=== PATIENT | female | born 1990 | race Caucasian/White ===

== ENCOUNTER 2017-03-02 16:20 | Inpatient (IN) | payer BC ==
[~2017-03-02] VITALS: Ht 157.5 cm; Wt 106.5 kg
[~2017-03-02 16:20] MED LIST: ADVIN10/60 INH; ALL180 PO; ASCA500 PO; GFNSR600 PO; GLC500 PO; LRT5 PO; MULT-506 PO; SNG10 PO; SPRINTEC PO
[2017-03-02] MEDS ORDERED: SODIUM CHLORIDE 0.9% 1000ML 1,000 ML IV STA ×3 (16:39→16:59)
--- NOTE | 2017-03-02 16:45 | EMERGENCY ROOM VISIT NOTE ---
History Report prepared by Lucy: Anatoliy Marroquin Under the Supervision of: Dr. Rock Tomas M.D. First contact with patient: 16:32 Chief Complaint: ILLNESS Stated Complaint: COUGH,CONGESTION,FEVER,SORE THROAT History of Present Illness The patient is a 27 year old female who presents to the Emergency Room with complaints of a fever that began three days ago. The patient's fever has been between 102 F and 103 F. At this time, the patient began to have a fever. The next day she took Advil and Tylenol alternating between the two. She then began to experience a productive cough, congestion, a sore throat, and neck pain. She denies any abdominal pain or falls. She did receive a flu shot this year. She went to a walk in clinic twice over the past three days due to the persistently high fever. She has had multiple sick contacts. Source of History: patient Onset: three days ago Position: other (global) Symptom Intensity: 102 to 103 F Quality: other (fever) Timing: other (Persistent) Associated Symptoms: + cough, + headache, + neck pain, + sorethroat, No abdominal pain Review of Systems See HPI for pertinent positives & negatives. A total of 10 systems reviewed and were otherwise negative. Past Medical & Surgical Medical Problems: (1) Asthma (2) Diabetes Family History Diabetes mellitus Social History Smoking Status: Never Smoker Smokeless Tobacco Use: No Drug Use: none Housing Status: lives with family Current/Historical Medications Scheduled Ascorbic Acid (Vitamin C), 500 MG PO QAM Azelastine Hcl-Fluticasone Pro (Dymista), 1 SPRY BRENT QAM Cholestyramine (Bulk) (Cholestyramine), 2 PKT PO DAILY Cinnamon (Cinnamon), 500 MG PO QAM Cranberry (Vaccinium Macrocarp (Cranberry), 4,200 MG PO QAM Ethinyl Estrad/Norgestimate (Sprintec 28), 1 TAB PO DAILY Guaifenesin Ext Rel (Mucinex Ext Rel), 600 MG PO QAM Lactobacillus (Acidophilus), 1 CAP PO DAILY Loratadine (Allergy), 10 MG PO QAM Losartan Potassium (Cozaar), 50 MG PO QPM Metformin Hcl Er (Glucophage Er), 1,500 MG PO TIDM Mometasone Furoate (Inhalation (Asmanex Twisthaler 7 Mete), 1 PUFF INH QAM Montelukast Sodium (Montelukast Sodium), 10 MG PO QPM Multiple Vitamins W/ Minerals (Centrum), 1 TAB PO QAM Saline ([place] Nasal [place]), 1 SPRAY NA AMPM Scheduled PRN Albuterol Hfa (Ventolin Hfa), 2 PUFFS INH PRN PRN for SOB/Wheezing Allergies Coded Allergies: Cephalosporins (Unverified Allergy, Unknown, HIVES, 04/01/16) Cefuroxime (Unverified Adverse Reaction, Unknown, UNKNOWN, 03/02/17) Sulfa Antibiotics (Unverified Adverse Reaction, Unknown, UNKNOWN, 03/02/17) Uncoded Allergies: BETALACTAMASEIN (Allergy, Unknown, 04/01/16) LORBID (Allergy, Unknown, 01/06/03) MISC B-LACTAM (Allergy, Unknown, 04/01/16) Physical Exam Vital Signs Date Time Temp Pulse Resp B/P Pulse Ox O2 Delivery O2 Flow Rate FiO2 03/02/17 16:40 110 03/02/17 16:36 116 158/95 97 03/02/17 16:25 36.7 117 16 167/97 97 Room Air Physical Exam GENERAL: Patient is well appearing and in minimal acute distress. HEENT: No acute trauma, normocephalic atraumatic, mucous membranes dry, no nasal congestion, no scleral icterus. Erythematous posterior oropharynx. NECK: No stridor, no adenopathy, no meningismus, trachea is midline. LUNGS: No dyspnea. Clear to auscultation and equal bilaterally. No wheeze, no rhonchi. HEART: Tachycardic rate and regular rhythm. No murmurs, rubs, gallops appreciated. ABDOMEN: Soft, nontender, bowel sounds positive, no masses appreciated, no peritonitis. BACK: No midline tenderness, no CVA tenderness EXTREMITIES: Normal motion all extremities, no cyanosis, no edema. NEUROLOGIC: Alert and oriented, no acute motor or sensory deficits, no focal weakness, cranial nerves grossly intact. SKIN: No rash, no jaundice, no diaphoresis. Medical Decision & Procedures ER Provider Diagnostic Interpretation: X ray results are stated below per my interpretation and the radiologist's interpretation. CHEST ONE VIEW PORTABLE HISTORY: cough, fever, fatigue COMPARISON: None. FINDINGS: The right lung is clear. Patchy airspace opacity within the left mid to lower lung zone. No pleural effusions. No pneumothorax. The heart is normal in size. IMPRESSION: Patchy airspace opacity within the left mid to lower lung zone consistent with a pneumonia. Electronically signed by: Joe Gan M.D. 03/02/2017 5:14 PM Dictated Date/Time: 03/02/2017 5:14 PM Laboratory Results 03/02/17 16:50 Red Blood Count 4.50, Mean Corpuscular Volume 87.8, Mean Corpuscular Hemoglobin 30.4, Mean Corpuscular Hemoglobin Concent 34.7, Mean Platelet Volume 10.5, Neutrophils (%) (Auto) 67.3, Lymphocytes (%) (Auto) 21.7, Monocytes (%) (Auto) 10.5, Eosinophils (%) (Auto) 0.4, Basophils (%) (Auto) 0.1, Neutrophils # (Auto ) 4.89, Lymphocytes # (Auto) 1.58, Monocytes # (Auto) 0.76, Eosinophils # (Auto ) 0.03, Basophils # (Auto) 0.01 03/02/17 16:50 Test 03/02/17 16:45 03/02/17 16:50 03/02/17 16:56 Influenza Type A Antigen POS for Influ A (NEG) Influenza Type B Antigen Neg for Influ B (NEG) White Blood Count 7.27 K/uL (4.8-10.8) Red Blood Count 4.50 M/uL (4.2-5.4) Hemoglobin 13.7 g/dL (12.0-16.0) Hematocrit 39.5 % (37-47) Mean Corpuscular Volume 87.8 fL (80-100) Mean Corpuscular Hemoglobin 30.4 pg (25-34) Mean Corpuscular Hemoglobin Concent 34.7 g/dl (32-36) Platelet Count 245 K/uL (130-400) Mean Platelet Volume 10.5 fL (7.4-10.4) Neutrophils (%) (Auto) 67.3 % Lymphocytes (%) (Auto) 21.7 % Monocytes (%) (Auto) 10.5 % Eosinophils (%) (Auto) 0.4 % Basophils (%) (Auto) 0.1 % Neutrophils # (Auto) 4.89 K/uL (1.4-6.5) Lymphocytes # (Auto) 1.58 K/uL (1.2-3.4) Monocytes # (Auto) 0.76 K/uL (0.11-0.59) Eosinophils # (Auto) 0.03 K/uL (0-0.5) Basophils # (Auto) 0.01 K/uL (0-0.2) RDW Standard Deviation 45.7 fL (36.4-46.3) RDW Coefficient of Variation 14.1 % (11.5-14.5) Immature Granulocyte % (Auto) 0.0 % Immature Granulocyte # (Auto) 0.00 K/uL (0.00-0.02) Prothrombin Time 10.4 SECONDS (9.0-12.0) Prothromb Time International Ratio 1.0 (0.9-1.1) Activated Partial Thromboplast Time 30.2 SECONDS (21.0-31.0) Partial Thromboplastin Ratio 1.2 Anion Gap 12.0 mmol/L (3-11) Est Creatinine Clear Calc Drug Dose 149.5 ml/min Estimated GFR () 142.3 Estimated GFR (Non- 122.8 BUN/Creatinine Ratio 7.8 (10-20) Calcium Level 8.8 mg/dl (8.5-10.1) Troponin I < 0.015 ng/ml (0-0.045) C-Reactive Protein 31.50 mg/dl (0-0.29) Chemistry Specimen Hemolysis Bedside Lactic Acid Venous 3.46 mmol/L (0.90-1.70) Laboratory results as reviewed by me. Medications Administered Medications (Trade) Dose Ordered Sig/Berto Route Start Time Stop Time Status Last Admin Dose Admin Sodium Chloride 1,000 ml @ 999 mls/hr Q1H1M STAT IV 03/02/17 16:39 03/02/17 17:39 DC 03/02/17 16:56 999 MLS/HR Sodium Chloride 1,000 ml @ 999 mls/hr Q1H1M STAT IV 03/02/17 16:58 03/02/17 17:58 DC 03/02/17 17:05 999 MLS/HR Sodium Chloride (Nss 1000ml) 1,000 ml @ 999 mls/hr Q1H1M STAT IV 03/02/17 16:59 4/9/17 17:59 DC 03/02/17 18:38 999 MLS/HR Levofloxacin (Levaquin / D5W) 750 mg NOW STAT IV 03/02/17 17:20 03/02/17 17:22 DC 03/02/17 17:42 750 MG Oseltamivir Phosphate (Tamiflu Cap) 75 mg NOW STAT PO 03/02/17 17:27 03/02/17 17:29 DC 03/02/17 17:41 75 MG ECG Indication: other (Illness) Rate (beats per minute): 107 Rhythm: sinus tachycardia Findings: no acute ischemic change, no ectopy ED Course 1632: The patient was evaluated in room A2. A complete history and physical exam was performed. 1639: Ordered Sodium Chloride 1000 ml @ 999 mls/hr IV, Sodium Chloride 1000 ml @ 999 mls/hr IV 1659: Ordered Sodium Chloride 1000 ml @ 999 mls/hr IV 1705: After reevaluation, the patient is in no distress. 1720: Ordered Levofloxacin 750 mg IV 1726: The patient and mother are in agreement with the patient staying for further inpatient care. 1727: Ordered Tamiflu Cap 75 mg PO 1730: Upon reevaluation, the patient is resting. Discussed results and treatment plan with the patient. She verbalized understanding and agreement with the treatment plan. The patient will be evaluated Dr. Jorge Mayorga, for further management. Medical Decision Differential: Viral, Pharyngitis, Cellulitis, Pneumonia, Influenza, Meningitis, Sepsis, Bacteremia, UTI/Pyelonephritis, Endocrine, Toxicologic, amongst other pathologies entertained. 27 yr old arrives with complaints of fevers, fatigue, along with multiple flu- like symptoms. She does not have meningitis by examination. Initial lung exam not very impressive though she is clearly quite dehydrated. With fevers/tachy went ahead with lactic acid which was significantly elevated consistent with sepsis. Full 30ml/kg fluid bolus along with 2 IV's ordered. She was given empiric Levaquin for pneumonia with LLL infiltrate noted on CXR. EKG is tach and trop negative. No evidence of layla/myocarditis. Multiple re-checks and patient looking improved though cough mildly more pronounced. She had flu positive and with sepsis felt that Tamiflu treatment in order. Consults Time Called: 1726 Consulting Physician: Dr. [place] [facility] Returned Call: 1730 They will be evaluating the patient for further management. Impression Primary Impression: Severe sepsis Additional Impressions: Dehydration LLL pneumonia Lactic acidosis Influenza A Critical Care I have personally spent greater than 35 minutes of critical care time in the direct management of this patient. This was a life/limb threatening event. This includes time spent evaluating patient, direct bedside care, chart review, placing orders, interpretation of diagnostic studies, discussion with consultants, patient, and family members, as well as other required patient management activities. These 35 minutes are in excess of all separately billable procedures. Scribe Attestation The scribe's documentation has been prepared under my direction and personally reviewed by me in its entirety. I confirm that the note above accurately reflects all work, treatment, procedures, and medical decision making performed by me. Departure Information Dispostion Being Evaluated By Hospitalist Referrals Coy Pham M.D. (PCP) Patient Instructions My [facility] Problem Qualifiers Additional Impressions: LLL pneumonia Pneumonia type: due to unspecified organism Qualified Codes: J18.1 - Lobar pneumonia, unspecified organism
[2017-03-02] MEDS ORDERED: MONT1TAB5 PO (16:51)
[2017-03-02] MEDS ORDERED: CINN500T PO (16:51)
[2017-03-02] MEDS ORDERED: LOSA50TA6 PO (16:51)
[2017-03-02] MEDS ORDERED: ASCO1CAP3 PO (16:51)
[2017-03-02] MEDS ORDERED: SPR28 PO (16:51)
[2017-03-02] MEDS ORDERED: LACTCAP3 PO (16:51)
[2017-03-02] MEDS ORDERED: CRAN1TAB6 PO (16:51)
[2017-03-02] MEDS ORDERED: VNTHFA/IN INH (16:51)
[2017-03-02] MEDS ORDERED: LORA10TA44 PO (16:51)
[2017-03-02] MEDS ORDERED: GUAI1TAB55 PO (16:51)
[2017-03-02] MEDS ORDERED: CHOLPOW PO (16:51)
[2017-03-02] MEDS ORDERED: MOME110A2 INH (16:51)
[2017-03-02] MEDS ORDERED: SALI0.6510 (16:51)
[2017-03-02] MEDS ORDERED: MULTTAB5 PO (16:51)
[2017-03-02] MEDS ORDERED: METF500T5 PO (16:51)
[2017-03-02] MEDS ORDERED: AZEL30SP NAE (16:51)
[2017-03-02 17:09] LABS: BASO % 0.1 %; BASO ABS # 0.01 K/uL (0-0.2); COMPLETE YES; EOS % 0.4 %; HEMATOCRIT 39.5 % (37-47); LYMPH % 21.7 %; LYMPH ABS # 1.58 K/uL (1.2-3.4); MEAN CELL VOLUME 87.8 fL (80-100); MEAN CORPUSCULAR HEMOGLOBIN 30.4 pg (25-34); MEAN CORPUSCULAR HGB CONC 34.7 g/dl (32-36); MEAN PLATELET VOLUME 10.5 fL (7.4-10.4); MONO % 10.5 %; NEUT % 67.3 %; PLATELET COUNT 245 K/uL (130-400); WHITE BLOOD COUNT 7.27 K/uL (4.8-10.8)
--- NOTE | 2017-03-02 17:17 | DIAGNOSTIC IMAGING REPORT ---
CHEST ONE VIEW PORTABLE HISTORY: cough, fever, fatigue COMPARISON: None. FINDINGS: The right lung is clear. Patchy airspace opacity within the left mid to lower lung zone. No pleural effusions. No pneumothorax. The heart is normal in size. IMPRESSION: Patchy airspace opacity within the left mid to lower lung zone consistent with a pneumonia. Electronically signed by: Joe Gan M.D. 03/02/2017 5:14 PM Dictated Date/Time: 03/02/2017 5:14 PM
[2017-03-02 17:18] LABS: PARTIAL THROMBOPLASTIN RATIO 1.2; PROTHROMBIN TIME (PATIENT) 10.4 SECONDS (9.0-12.0)
[2017-03-02] MEDS ORDERED: LEVAQUIN 750MG / 150ML D5W IV STA (17:20)
[2017-03-02] MEDS ORDERED: OSELTAMIVIR PHOSPHATE 75 MG CAP PO STA (17:27)
[2017-03-02 17:29] LABS: BLOOD UREA NITROGEN 5 mg/dl (7-18); BUN/CREATININE RATIO 7.8 (10-20); CALCIUM 8.8 mg/dl (8.5-10.1); CARBON DIOXIDE 24 mmol/L (21-32); CHLORIDE 103 mmol/L (98-107); CREATININE 0.66 mg/dl (0.60-1.20); GLUCOSE 208 mg/dl (70-99)
[2017-03-02 17:54] LABS: POTASSIUM 3.4 mmol/L (3.5-5.1); SODIUM 139 mmol/L (136-145)
[2017-03-02] MEDS ORDERED: POLYETHYLENE (MIRALAX) 17 GM PACK PO PRN (18:00)
[2017-03-02] MEDS: SODIUM CHLORIDE 0.9% 1000ML 1,000 ML IV SCH (18:00)
[2017-03-02] MEDS ORDERED: ZOLPIDEM TARTRATE 5 MG TAB PO PRN (18:00)
[2017-03-02] MEDS ORDERED: ALUMINUM/MAGNESIUM/SIMETH (MAALOX MAX) 30 ML UDC PO PRN (18:00)
[2017-03-02] MEDS ORDERED: MAGNESIUM HYDROXIDE SUSP 30 ML UDC PO PRN (18:00)
--- NOTE | 2017-03-02 18:22 | History and Physical ---
History & Physical Date & Time of Service: Mar 02, 2017 at 18:20 Chief Complaint: Cough,Congestion,Fever,Sore Throat Primary Care Physician: Coy Pham M.D. History of Present Illness Source: patient, hospital records 27 year old female with known past medical history of Type II Diabetes, Hypertension, Bronchia;l Asthma presents to the ER with complaints of a fever that began three days ago. The patient's fever has been between 102 F and 103 F. At this time, the patient began to have a fever. The next day she took Advil and Tylenol alternating between the two. She then began to experience a productive cough, congestion, a sore throat, and neck pain. She denies any abdominal pain or falls. She did receive a flu shot this year. She went to a walk in clinic twice over the past three days due to the persistently high fever. She has had multiple sick contacts. Past Medical/Surgical History Medical Problems: (1) Asthma Status: Chronic (2) Diabetes Status: Chronic Family History Diabetes mellitus Social History Smoking Status: Never Smoker Smokeless Tobacco Use: No Drug Use: none Multi-Drug Resistant Organisms History of MDRO: No Allergies Coded Allergies: Cephalosporins (Unverified Allergy, Unknown, HIVES, 04/01/16) Cefuroxime (Unverified Adverse Reaction, Unknown, UNKNOWN, 03/02/17) Sulfa Antibiotics (Unverified Adverse Reaction, Unknown, UNKNOWN, 03/02/17) Uncoded Allergies: BETALACTAMASEIN (Allergy, Unknown, 04/01/16) LORBID (Allergy, Unknown, 01/06/03) MISC B-LACTAM (Allergy, Unknown, 04/01/16) Home Medications Scheduled Ascorbic Acid (Vitamin C), 500 MG PO QAM Azelastine Hcl-Fluticasone Pro (Dymista), 1 SPRY BRENT QAM Cholestyramine (Bulk) (Cholestyramine), 2 PKT PO DAILY Cinnamon (Cinnamon), 500 MG PO QAM Cranberry (Vaccinium Macrocarp (Cranberry), 4,200 MG PO QAM Ethinyl Estrad/Norgestimate (Sprintec 28), 1 TAB PO DAILY Guaifenesin Ext Rel (Mucinex Ext Rel), 600 MG PO QAM Lactobacillus (Acidophilus), 1 CAP PO DAILY Loratadine (Allergy), 10 MG PO QAM Losartan Potassium (Cozaar), 50 MG PO QPM Metformin Hcl Er (Glucophage Er), 1,500 MG PO TIDM Mometasone Furoate (Inhalation (Asmanex Twisthaler 7 Mete), 1 PUFF INH QAM Montelukast Sodium (Montelukast Sodium), 10 MG PO QPM Multiple Vitamins W/ Minerals (Centrum), 1 TAB PO QAM Saline ([place] Nasal [place]), 1 SPRAY NA AMPM Scheduled PRN Albuterol Hfa (Ventolin Hfa), 2 PUFFS INH PRN PRN for SOB/Wheezing Review of Systems See HPI for pertinent positives & negatives. A total of 10 systems reviewed and were otherwise negative. Physical Exam Vital Signs Date Time Temp Pulse Resp B/P Pulse Ox O2 Delivery O2 Flow Rate FiO2 03/02/17 16:40 110 03/02/17 16:36 116 158/95 97 03/02/17 16:25 36.7 117 16 167/97 97 Room Air General Appearance: WD/WN, + mild distress Head: normocephalic, atraumatic Eyes: normal inspection, PERRL, EOMI, sclerae normal, funduscopic exam normal ENT: normal ENT inspection, hearing grossly normal, TMs normal, + nasal congestion, + pharyngeal erythema Neck: supple, no adenopathy, thyroid normal, no JVD, trachea midline Respiratory/Chest: chest non-tender, lungs clear, + rales (Left Lung base) Cardiovascular: no gallop, no JVD, no murmur, + tachycardia Abdomen/GI: normal bowel sounds, non tender, soft, no organomegaly Back: normal inspection, no CVA tenderness, no muscle spasm, normal range of motion Extremities/Musculoskelatal: normal inspection, no calf tenderness, normal capillary refill, no pedal edema, normal range of motion Neurologic/Psych: alert, normal mood/affect, normal reflexes, oriented x 3 Diagnostics Laboratory Results Results Past 24 Hours Test 03/02/17 16:45 03/02/17 16:50 03/02/17 16:56 03/02/17 17:55 Range/Units Influenza Type A Antigen POS for Influ A NEG Influenza Type B Antigen Neg for Influ B NEG White Blood Count 7.27 4.8-10.8 K/uL Red Blood Count 4.50 4.2-5.4 M/uL Hemoglobin 13.7 12.0-16.0 g/dL Hematocrit 39.5 37-47 % Mean Corpuscular Volume 87.8 80-100 fL Mean Corpuscular Hemoglobin 30.4 25-34 pg Mean Corpuscular Hemoglobin Concent 34.7 32-36 g/dl Platelet Count 245 130-400 K/uL Mean Platelet Volume 10.5 7.4-10.4 fL Neutrophils (%) (Auto) 67.3 % Lymphocytes (%) (Auto) 21.7 % Monocytes (%) (Auto) 10.5 % Eosinophils (%) (Auto) 0.4 % Basophils (%) (Auto) 0.1 % Neutrophils # (Auto) 4.89 1.4-6.5 K/uL Lymphocytes # (Auto) 1.58 1.2-3.4 K/uL Monocytes # (Auto) 0.76 0.11-0.59 K/uL Eosinophils # (Auto) 0.03 0-0.5 K/uL Basophils # (Auto) 0.01 0-0.2 K/uL RDW Standard Deviation 45.7 36.4-46.3 fL RDW Coefficient of Variation 14.1 11.5-14.5 % Immature Granulocyte % (Auto) 0.0 % Immature Granulocyte # (Auto) 0.00 0.00-0.02 K/uL Prothrombin Time 10.4 9.0-12.0 SECONDS Prothromb Time International Ratio 1.0 0.9-1.1 Activated Partial Thromboplast Time 30.2 21.0-31.0 SECONDS Partial Thromboplastin Ratio 1.2 Sodium Level 139 136-145 mmol/L Potassium Level 3.4 3.5-5.1 mmol/L Chloride Level 103 98-107 mmol/L Carbon Dioxide Level 24 21-32 mmol/L Anion Gap 12.0 3-11 mmol/L Blood Urea Nitrogen 5 7-18 mg/dl Creatinine 0.66 0.60-1.20 mg/dl Est Creatinine Clear Calc Drug Dose 149.5 ml/min Estimated GFR () 142.3 Estimated GFR (Non- 122.8 BUN/Creatinine Ratio 7.8 10-20 Random Glucose 208 70-99 mg/dl Calcium Level 8.8 8.5-10.1 mg/dl Troponin I < 0.015 0-0.045 ng/ml C-Reactive Protein 31.50 0-0.29 mg/dl Chemistry Specimen Hemolysis Bedside Lactic Acid Venous 3.46 0.90-1.70 mmol/L Microbiology Results 03/02/17 Blood Culture, Received Pending 03/02/17 Blood Culture, Received Pending 03/02/17 Group A Streptococcus Screen, Received Pending 03/02/17 Group A Streptococcus Screen (PARISA), Received Pending Diagnostic Radiology CHEST ONE VIEW PORTABLE HISTORY: cough, fever, fatigue COMPARISON: None. FINDINGS: The right lung is clear. Patchy airspace opacity within the left mid to lower lung zone. No pleural effusions. No pneumothorax. The heart is normal in size. IMPRESSION: Patchy airspace opacity within the left mid to lower lung zone consistent with a pneumonia. Impression Assessment and Plan Left Sided Pneumonia/ Acute Viral Syndrome: As per clinical examination and findings of diagnostic work up. Patient is febrile, has normal WBC, elevated lactic acid, tachycardia & has elevated BP. ?? Viral/Bacterial Pneumonia. -Continue Levaquin 750 mg daily -Continue Tamiflu 75 mg BID X 5 days -Tylenol as needed for fever -Gentle IVF -Follow Lactic acid as ER did POC. -Contact precautions History HTN: BP has been running high. -Continue monitoring -Continue Losartan History Type II Diabetes: Holding Metformin. -Monitor BS and cover with sliding scale -Pharmacy consult for glycemic management. Morbid Obesity Code Status: FULL CODE DVT Prophylaxis: SCDs & Ambulation. Disposition: Discharge once is clinically stable. Level of Care Med/Surg Resuscitation Status FULL RESUSCITATION VTE Prophylaxis VTE Risk Assessment Done? Y/N: Yes Risk Level: Very Low Given or contraindicated: SCD's
[2017-03-02 18:30] VITALS: O2SAT 96; Ht 157.5 cm; Wt 106.5 kg
[2017-03-02 21:35] VITALS: BP 150/83; PULSE 114; TEMP 36.9; O2SAT 99
[2017-03-03] VITALS (10 sets, daily range): BP systolic 131–158; BP diastolic 75–94; PULSE 77–124; TEMP 37–39.3; O2SAT 97–100
[2017-03-03] MEDS: ACETAMINOPHEN 325 MG TAB PO PRN ×2 (00:12→23:50)
[2017-03-03] MEDS: SODIUM CHLORIDE 0.9% 1000ML 1,000 ML IV SCH (00:14)
[2017-03-03] MEDS ORDERED: GLUCAGON FOR INJ 1 MG VIAL SQ PRN (05:00)
[2017-03-03] MEDS ORDERED: DEXTROSE 50% 50 ML SYR IV PRN (05:00)
[2017-03-03] MEDS ORDERED: GLUCOSE 10 TABS/TUBE PO PRN (05:00)
[2017-03-03] MEDS ORDERED: GLUCOSE 40% GEL 15 GM TUBE PO PRN (05:00)
[2017-03-03 07:36] LABS: BASO % 0.2 %; BASO ABS # 0.01 K/uL (0-0.2); COMPLETE YES; EOS % 0.9 %; HEMATOCRIT 35.6 % (37-47); IG% 0.2 %; LYMPH % 31.4 %; LYMPH ABS # 1.78 K/uL (1.2-3.4); MEAN CELL VOLUME 87.9 fL (80-100); MEAN CORPUSCULAR HEMOGLOBIN 30.4 pg (25-34); MEAN CORPUSCULAR HGB CONC 34.6 g/dl (32-36); MEAN PLATELET VOLUME 10.5 fL (7.4-10.4); MONO % 13.4 %; NEUT % 53.9 %; PLATELET COUNT 213 K/uL (130-400); RED BLOOD COUNT 4.05 M/uL (4.2-5.4); WHITE BLOOD COUNT 5.66 K/uL (4.8-10.8)
[2017-03-03 07:52] LABS: ESTIMATED AVERAGE GLUCOSE 154 mg/dl; HA1C FLAG Normal (Normal)
[2017-03-03 08:10] LABS: BLOOD UREA NITROGEN 5 mg/dl (7-18); CARBON DIOXIDE 21 mmol/L (21-32); CHLORIDE 107 mmol/L (98-107); CREATININE 0.41 mg/dl (0.60-1.20); GLUCOSE 182 mg/dl (70-99); POTASSIUM 3.6 mmol/L (3.5-5.1); SODIUM 140 mmol/L (136-145)
[2017-03-03] MEDS: OSELTAMIVIR PHOSPHATE 75 MG CAP PO SCH ×2 (08:17→20:53)
[2017-03-03] MEDS ORDERED: NURSING VERBAL MED ORDER ONE (09:00)
[2017-03-03] MEDS: INSULIN HUMAN REGULAR SC SCH ×4 (09:21→20:57)
--- NOTE | 2017-03-03 09:22 | Progress Note ---
Internal Med Progress Note Date of Service: Mar 03, 2017. Provider Documentation: SUBJECTIVE: Patient is walking in her room and is in no distress. She is breathing comfortably and has intermittent mid-sternal pain on coughing and taking deep breath. Intermittent chills and cough. OBJECTIVE: Vital Signs-as noted below Examination: General Appearance: WD/WN, In no apparent distress. Head: normocephalic, atraumatic Eyes: normal inspection, PERRL, EOMI, sclerae normal, funduscopic exam normal ENT: normal ENT inspection, hearing grossly normal, TMs normal, + nasal congestion, + pharyngeal erythema Neck: supple, no adenopathy, thyroid normal, no JVD, trachea midline Respiratory/Chest: chest non-tender, lungs clear, Decreased BS at left lung base. Cardiovascular: no gallop, no JVD, no murmur, + tachycardia Abdomen/GI: normal bowel sounds, non tender, soft, no organomegaly Back: normal inspection, no CVA tenderness, no muscle spasm, normal range of motion Extremities/Musculoskeletal: normal inspection, no calf tenderness, normal capillary refill, no pedal edema, normal range of motion Neurologic/Psych: alert, normal mood/affect, normal reflexes, oriented x 3 Lab data as noted below. ASSESSMENT & PLAN: CHEST ONE VIEW PORTABLE HISTORY: cough, fever, fatigue COMPARISON: None. FINDINGS: The right lung is clear. Patchy airspace opacity within the left mid to lower lung zone. No pleural effusions. No pneumothorax. The heart is normalin size. IMPRESSION: Patchy airspace opacity within the left mid to lower lung zone consistent with a pneumonia. Left Sided Pneumonia/ Acute Viral Syndrome: As per clinical examination and findings of diagnostic work up. Patient is febrile, has normal WBC, elevated lactic acid, tachycardia & has elevated BP. ?? Viral/Bacterial Pneumonia. -Continue Levaquin 750 mg (Day # 2)daily -Continue Tamiflu 75 mg BID X 5 days (Day # 2). -Tylenol as needed for fever -Gentle IVF -Lactic acid trend shows 3.2 --> 3.1 --> 1.4). -Contact precautions History HTN: BP has been running high. -Continue monitoring -Continue Losartan History Type II Diabetes: Holding Metformin. -HbA1c is 7.0. -Monitor BS and cover with sliding scale -Pharmacy consult for glycemic management. Morbid Obesity Code Status: FULL CODE DVT Prophylaxis: SCDs & Ambulation. Disposition: Discharge once is clinically stable. Vital Signs: Date Time Temp Pulse Resp B/P Pulse Ox O2 Delivery O2 Flow Rate FiO2 03/03/17 09:01 97 Room Air 03/03/17 08:04 37.1 110 16 148/94 97 Room Air 03/03/17 02:30 100 03/03/17 02:27 37.6 03/03/17 00:28 39.3 124 20 158/76 100 Room Air 03/03/17 00:05 Room Air 03/02/17 21:35 36.9 114 20 150/83 99 Room Air 03/02/17 18:30 104 22 155/90 98 03/02/17 18:30 96 Room Air 03/02/17 16:40 110 03/02/17 16:36 116 158/95 97 03/02/17 16:25 36.7 117 16 167/97 97 Room Air Lab Results: Results Past 24 Hours Test 03/02/17 16:45 03/02/17 16:50 03/02/17 16:56 03/02/17 18:44 Range/Units Influenza Type A Antigen POS for Influ A NEG Influenza Type B Antigen Neg for Influ B NEG White Blood Count 7.27 4.8-10.8 K/uL Red Blood Count 4.50 4.2-5.4 M/uL Hemoglobin 13.7 12.0-16.0 g/dL Hematocrit 39.5 37-47 % Mean Corpuscular Volume 87.8 80-100 fL Mean Corpuscular Hemoglobin 30.4 25-34 pg Mean Corpuscular Hemoglobin Concent 34.7 32-36 g/dl Platelet Count 245 130-400 K/uL Mean Platelet Volume 10.5 7.4-10.4 fL Neutrophils (%) (Auto) 67.3 % Lymphocytes (%) (Auto) 21.7 % Monocytes (%) (Auto) 10.5 % Eosinophils (%) (Auto) 0.4 % Basophils (%) (Auto) 0.1 % Neutrophils # (Auto) 4.89 1.4-6.5 K/uL Lymphocytes # (Auto) 1.58 1.2-3.4 K/uL Monocytes # (Auto) 0.76 0.11-0.59 K/uL Eosinophils # (Auto) 0.03 0-0.5 K/uL Basophils # (Auto) 0.01 0-0.2 K/uL RDW Standard Deviation 45.7 36.4-46.3 fL RDW Coefficient of Variation 14.1 11.5-14.5 % Immature Granulocyte % (Auto) 0.0 % Immature Granulocyte # (Auto) 0.00 0.00-0.02 K/uL Prothrombin Time 10.4 9.0-12.0 SECONDS Prothromb Time International Ratio 1.0 0.9-1.1 Activated Partial Thromboplast Time 30.2 21.0-31.0 SECONDS Partial Thromboplastin Ratio 1.2 Sodium Level 139 136-145 mmol/L Potassium Level 3.4 3.5-5.1 mmol/L Chloride Level 103 98-107 mmol/L Carbon Dioxide Level 24 21-32 mmol/L Anion Gap 12.0 3-11 mmol/L Blood Urea Nitrogen 5 7-18 mg/dl Creatinine 0.66 0.60-1.20 mg/dl Est Creatinine Clear Calc Drug Dose 149.5 ml/min Estimated GFR () 142.3 Estimated GFR (Non- 122.8 BUN/Creatinine Ratio 7.8 10-20 Random Glucose 208 70-99 mg/dl Calcium Level 8.8 8.5-10.1 mg/dl Troponin I < 0.015 0-0.045 ng/ml C-Reactive Protein 31.50 0-0.29 mg/dl Chemistry Specimen Hemolysis Bedside Lactic Acid Venous 3.46 0.90-1.70 mmol/L Lactic Acid Level 3.2 0.4-2.0 mmol/L Test 03/02/17 21:04 03/02/17 23:10 03/03/17 07:02 03/03/17 07:19 Range/Units Bedside Glucose 185 168 70-90 mg/dl Lactic Acid Level 3.1 1.4 0.4-2.0 mmol/L White Blood Count 5.66 4.8-10.8 K/uL Red Blood Count 4.05 4.2-5.4 M/uL Hemoglobin 12.3 12.0-16.0 g/dL Hematocrit 35.6 37-47 % Mean Corpuscular Volume 87.9 80-100 fL Mean Corpuscular Hemoglobin 30.4 25-34 pg Mean Corpuscular Hemoglobin Concent 34.6 32-36 g/dl Platelet Count 213 130-400 K/uL Mean Platelet Volume 10.5 7.4-10.4 fL Neutrophils (%) (Auto) 53.9 % Lymphocytes (%) (Auto) 31.4 % Monocytes (%) (Auto) 13.4 % Eosinophils (%) (Auto) 0.9 % Basophils (%) (Auto) 0.2 % Neutrophils # (Auto) 3.05 1.4-6.5 K/uL Lymphocytes # (Auto) 1.78 1.2-3.4 K/uL Monocytes # (Auto) 0.76 0.11-0.59 K/uL Eosinophils # (Auto) 0.05 0-0.5 K/uL Basophils # (Auto) 0.01 0-0.2 K/uL RDW Standard Deviation 46.1 36.4-46.3 fL RDW Coefficient of Variation 14.2 11.5-14.5 % Immature Granulocyte % (Auto) 0.2 % Immature Granulocyte # (Auto) 0.01 0.00-0.02 K/uL Sodium Level 140 136-145 mmol/L Potassium Level 3.6 3.5-5.1 mmol/L Chloride Level 107 98-107 mmol/L Carbon Dioxide Level 21 21-32 mmol/L Anion Gap 12.0 3-11 mmol/L Blood Urea Nitrogen 5 7-18 mg/dl Creatinine 0.41 0.60-1.20 mg/dl Est Creatinine Clear Calc Drug Dose 240.6 ml/min Estimated GFR () > 150.0 Estimated GFR (Non- 143.6 BUN/Creatinine Ratio 12.0 10-20 Random Glucose 182 70-99 mg/dl Estimated Average Glucose 154 mg/dl Hemoglobin A1c 7.0 4.5-5.6 % Calcium Level 8.0 8.5-10.1 mg/dl Microbiology Results 03/02/17 Blood Culture, Received Pending 03/02/17 Blood Culture, Received Pending 03/02/17 Group A Streptococcus Screen - Final, Resulted SPECIMEN NEGATIVE FOR GROUP A BETA ST... 03/02/17 Group A Streptococcus Screen (PARISA), Resulted Pending
[2017-03-03] MEDS: ONDANSETRON INJ 2 MG/ML 2 ML VIAL IV PRN (09:23)
[2017-03-03] MEDS ORDERED: PHARMACY GLYCEMIC MGMT CONSULT PRN (09:23)
[2017-03-03] MEDS ORDERED: MICONAZOLE NITRATE POWDER 43 GM EXT PRN (09:30)
[2017-03-03] MEDS ORDERED: METF500T5 PO (12:51)
--- NOTE | 2017-03-03 12:53 | Pharmacy Progress Note ---
Glycemic Control Intl Consult Date of Service Mar 03, 2017. Scope Glycemic Pharmacist consulted by Dr Loyd on 03/03/17 for glycemic control and to write orders per [facility] inpatient glycemic control protocol Objective Weight (Kilograms): 106.500 Accuchecks BSG (last 24hrs): Test 03/02/17 16:50 03/02/17 21:04 03/03/17 07:02 03/03/17 07:19 Random Glucose 208 mg/dl (70-99) 182 mg/dl (70-99) Bedside Glucose 185 mg/dl (70-90) 168 mg/dl (70-90) Test 03/03/17 11:30 Bedside Glucose 275 mg/dl (70-90) Laboratory Data (last 24hrs) Test 03/02/17 16:50 03/03/17 07:19 Anion Gap 12.0 mmol/L 12.0 mmol/L BUN/Creatinine Ratio 7.8 12.0 Blood Urea Nitrogen 5 mg/dl 5 mg/dl Creatinine 0.66 mg/dl 0.41 mg/dl Potassium Level 3.4 mmol/L 3.6 mmol/L Sodium Level 139 mmol/L 140 mmol/L White Blood Count 7.27 K/uL 5.66 K/uL Red Blood Count 4.50 M/uL 4.05 M/uL Hemoglobin 13.7 g/dL 12.3 g/dL Hematocrit 39.5 % 35.6 % Mean Corpuscular Volume 87.8 fL 87.9 fL Mean Corpuscular Hemoglobin 30.4 pg 30.4 pg Mean Corpuscular Hemoglobin Concent 34.7 g/dl 34.6 g/dl Platelet Count 245 K/uL 213 K/uL Mean Platelet Volume 10.5 fL 10.5 fL Neutrophils (%) (Auto) 67.3 % 53.9 % Lymphocytes (%) (Auto) 21.7 % 31.4 % Monocytes (%) (Auto) 10.5 % 13.4 % Eosinophils (%) (Auto) 0.4 % 0.9 % Basophils (%) (Auto) 0.1 % 0.2 % Neutrophils # (Auto) 4.89 K/uL 3.05 K/uL Lymphocytes # (Auto) 1.58 K/uL 1.78 K/uL Monocytes # (Auto) 0.76 K/uL 0.76 K/uL Eosinophils # (Auto) 0.03 K/uL 0.05 K/uL Basophils # (Auto) 0.01 K/uL 0.01 K/uL Hemoglobin A1c 7.0 % HbA1c Test 03/03/17 07:19 Hemoglobin A1c 7.0 % (4.5-5.6) H Recent Pertinent Medications Outpatient Anti-diabetic Regimen: * metformin ER 500 mg TID (Confirmed with [facility]--> updated medication reconciliation) * A1c = 7.0 % 03/03/2017 The patient is currently receiving: * Correctional Insulin: Regular Insulin Correction per scale ACHS Goal Range: Low 100 mg/dL - High 140 mg/dL Correction Factor: 30 mg/dL/unit * Prandial insulin: Per carb ratio of 1 unit per 20 grams CHO consumed * Oral Agents: NONE Risk Factors for Insulin Resistance: * Infection: influenza A positive plus concern for superimposed bacterial infection * Diet: type 2 diabetic diet Assessment & Plan ASSESSMENT: * ADA & AACE recommend a goal blood sugar range 140-180 mg/dl for the majority of critically ill & non-critically ill patients. However, more stringent targets may be selected in individual cases. * Ms Alvarado is a 27 y/o F admitted with a positive influenza swab and concern for superimposed bacterial infection. The patient remains febrile, but her lactic acid has decreased from 3.2 mg/dL to 1.4 mg/dL. * As the patient is sick currently, her blood sugars may be higher than normal. However, since she is reasonably well controlled at home with her current regimen, tighter blood sugar control is reasonable so a goal range of 100-140 mg /dL is chosen. * The patient's correction factor and carbohydrate ratio will be tightened as the patient's blood sugar increased from 168 mg/dL this AM to 275 mg/dL this afternoon. This indicates a more aggressive carbohydrate coverage is needed along with a correction factor. * The patient is currently receiving regular insulin. Novolog is preferable to regular insulin as there is potential stacking of doses with regular insulin and better control. However, since the patient already received a dose of Regular insulin, it will be continued unless issues arise. PLAN FOR INPATIENT GLYCEMIC CONTROL: * Holding outpatient oral diabetes medications * Correctional Insulin with REGULAR per scale ACHS * Goal Range: Low 100 mg/dL - High 140 mg/dL * TIGHTENING Correction Factor: 25 mg/dL/unit * TIGHTENING Nutritional / Prandial insulin per carb ratio of 1 unit per 10 grams CHO consumed * Please note that the plan above was derived based on current level of insulin resistance and hospital stress. These recommendations are appropriate for inpatient admission only. Plan of care upon discharge will need to be reassessed to avoid potential outpatient hypo/hyperglycemia. Thank you.
[2017-03-03] MEDS ORDERED: ALBUTEROL 0.5% NEB SOLN 2.5 MG/0.5 ML VIAL INH STA (16:13)
[2017-03-03] MEDS: LEVOFLOXACIN / D5W 750 MG in PREMIXED IN D5W 150 ML IV SCH (17:41)
[2017-03-03] MEDS ORDERED: ALBUTEROL 0.5% NEB SOLN 2.5 MG/0.5 ML VIAL INH PRN (21:00)
[2017-03-04] VITALS: BP 137/80; PULSE 98; TEMP 36.7; O2SAT 99
[2017-03-04 04:08] VITALS: PULSE 80; O2SAT 95
[2017-03-04 07:34] LABS: BASO % 0.3 %; BASO ABS # 0.02 K/uL (0-0.2); COMPLETE YES; EOS % 1.2 %; HEMATOCRIT 35.6 % (37-47); IG% 0.2 %; LYMPH % 36.2 %; LYMPH ABS # 2.09 K/uL (1.2-3.4); MEAN CELL VOLUME 86.4 fL (80-100); MEAN CORPUSCULAR HEMOGLOBIN 28.9 pg (25-34); MEAN CORPUSCULAR HGB CONC 33.4 g/dl (32-36); MEAN PLATELET VOLUME 9.9 fL (7.4-10.4); MONO % 11.8 %; NEUT % 50.3 %; PLATELET COUNT 251 K/uL (130-400); RED BLOOD COUNT 4.12 M/uL (4.2-5.4); WHITE BLOOD COUNT 5.77 K/uL (4.8-10.8)
[2017-03-04 07:42] VITALS: BP 129/84; PULSE 105; TEMP 36.7; O2SAT 96
[2017-03-04 08:01] LABS: BLOOD UREA NITROGEN 6 mg/dl (7-18); BUN/CREATININE RATIO 13.2 (10-20); CALCIUM 8.6 mg/dl (8.5-10.1); CARBON DIOXIDE 24 mmol/L (21-32); CHLORIDE 107 mmol/L (98-107); CREATININE 0.47 mg/dl (0.60-1.20); GLUCOSE 207 mg/dl (70-99); POTASSIUM 3.5 mmol/L (3.5-5.1); SODIUM 141 mmol/L (136-145)
[2017-03-04] MEDS ORDERED: LANTUS PER UNIT CHARGE SQ ONE (08:30)
[2017-03-04] MEDS: ONDANSETRON INJ 2 MG/ML 2 ML VIAL IV PRN (08:47)
[2017-03-04] MEDS: OSELTAMIVIR PHOSPHATE 75 MG CAP PO SCH ×2 (08:49→20:48)
[2017-03-04] MEDS: INSULIN HUMAN REGULAR SC SCH ×4 (09:00→20:55)
--- NOTE | 2017-03-04 13:58 | Pharmacy Progress Note ---
Glycemic Control: Progress Nt Date of Service Mar 04, 2017. Scope Glycemic Pharmacist consulted by Dr Loyd on 03/03 for glycemic control and to write orders per [facility] inpatient glycemic control protocol. Objective Accuchecks BSG (last 24hrs): Test 03/03/17 16:51 03/03/17 20:36 03/04/17 06:54 03/04/17 07:25 Bedside Glucose 183 mg/dl (70-90) 187 mg/dl (70-90) 212 mg/dl (70-90) Random Glucose 207 mg/dl (70-99) Test 03/04/17 11:21 Bedside Glucose 212 mg/dl (70-90) Laboratory Data (last 24hrs) Test 03/04/17 06:54 Anion Gap 10.0 mmol/L BUN/Creatinine Ratio 13.2 Blood Urea Nitrogen 6 mg/dl Creatinine 0.47 mg/dl Potassium Level 3.5 mmol/L Sodium Level 141 mmol/L White Blood Count 5.77 K/uL Red Blood Count 4.12 M/uL Hemoglobin 11.9 g/dL Hematocrit 35.6 % Mean Corpuscular Volume 86.4 fL Mean Corpuscular Hemoglobin 28.9 pg Mean Corpuscular Hemoglobin Concent 33.4 g/dl Platelet Count 251 K/uL Mean Platelet Volume 9.9 fL Neutrophils (%) (Auto) 50.3 % Lymphocytes (%) (Auto) 36.2 % Monocytes (%) (Auto) 11.8 % Eosinophils (%) (Auto) 1.2 % Basophils (%) (Auto) 0.3 % Neutrophils # (Auto) 2.90 K/uL Lymphocytes # (Auto) 2.09 K/uL Monocytes # (Auto) 0.68 K/uL Eosinophils # (Auto) 0.07 K/uL Basophils # (Auto) 0.02 K/uL HbA1c: Test 03/03/17 07:19 Hemoglobin A1c 7.0 % (4.5-5.6) H Recent Pertinent Medications Outpatient Anti-diabetic Regimen: * Metformin ER 500 mg TID The patient is currently receiving: * Basal insulin: None * Correctional Insulin: Regular Correction per scale ACHS Goal Range: Low 100 mg/dL - High 140 mg/dL Correction Factor: 25 mg/dL/unit * Prandial insulin: Per carb ratio of 1 unit per 10 grams CHO consumed * Oral Agents: On hold for admission Risk Factors for Insulin Resistance: * Infection: pneumonia/ flu * Diet:type 2 diabetes/ AHA Assessment & Plan ASSESSMENT: From 03/03/17 note: * Ms Alvarado is a 27 y/o F admitted with a positive influenza swab and concern for superimposed bacterial infection. The patient remains febrile, but her lactic acid has decreased from 3.2 mg/dL to 1.4 mg/dL. * As the patient is sick currently, her blood sugars may be higher than normal. However, since she is reasonably well controlled at home with her current regimen, tighter blood sugar control is reasonable so a goal range of 100-140 mg /dL is chosen. * The patient's correction factor and carbohydrate ratio will be tightened as the patient's blood sugar increased from 168 mg/dL this AM to 275 mg/dL this afternoon. This indicates a more aggressive carbohydrate coverage is needed along with a correction factor. * The patient is currently receiving regular insulin. Novolog is preferable to regular insulin as there is potential stacking of doses with regular insulin and better control. However, since the patient already received a dose of Regular insulin, it will be continued unless issues arise. 03/04/17 * Ms. Alvarado rec'd 22 units of insulin yesterday w/ BSGs all above goal * At this point, it appears she may need some basal insulin but this may only be temporary with the current infection * Will plan to give a one time dose of Lantus and tighten the CR slightly, then f/u tomorrow * May consider resuming metformin tomorrow as long as there are no contraindications PLAN FOR INPATIENT GLYCEMIC CONTROL: * Lantus 10 units x 1 this AM - further doses dependent on BSGs * Continue Regular insulin ACHS * Goal 100-140 * CF 25 * TIGHTEN CR to 8 RECOMMENDATIONS FOR DISCHARGE: * A1c indicates good outpatient control * Resume metformin on d/c * Please note that the plan above was derived based on current level of insulin resistance and hospital stress. These recommendations are appropriate for inpatient admission only. Plan of care upon discharge will need to be reassessed to avoid potential outpatient hypo/hyperglycemia. Thank you.
[2017-03-04 14:45] VITALS: BP 129/80; PULSE 83; TEMP 36.5; O2SAT 100
[2017-03-04] MEDS: LEVOFLOXACIN / D5W 750 MG in PREMIXED IN D5W 150 ML IV SCH (17:55)
[2017-03-04] MEDS ORDERED: NON-FORMULARY MEDICATION SCH (18:15)
--- NOTE | 2017-03-04 18:40 | Progress Note ---
Medicine Progress Note Date & Time of Visit: Mar 04, 2017 at 18:35. Subjective seen sitting up in bed parents at her bedside states she feels improved today compared to yesterday less cough and chest congestion, less sputum reports some dyspepsia and diarrhea this AM, resolved no other symptoms Objective Last 8 Hrs Date Time Temp Pulse Resp B/P Pulse Ox O2 Delivery O2 Flow Rate FiO2 03/04/17 15:56 Room Air 03/04/17 14:45 36.5 83 17 129/80 100 Room Air Physical Exam: General- oriented x 3, not in distress, speaks in sentences with no effort Eyes- EOMI, anicteric ENT- oropharynx clear Neck- supple, no JVD Lungs- (+) crackles on the left mid-base, no wheezing Heart- mild tachycardia, regular rhythm; no murmurs Abdomen- normal bowel sounds, soft, nontender Extremities- no pretibial edema, no calf tenderness Neuro- alert, oriented x 3; no gross focal deficits Skin- warm & dry Laboratory Results: Last 24 Hours Test 03/03/17 20:36 03/04/17 06:54 03/04/17 07:25 03/04/17 11:21 Bedside Glucose 187 mg/dl 212 mg/dl 212 mg/dl White Blood Count 5.77 K/uL Red Blood Count 4.12 M/uL Hemoglobin 11.9 g/dL Hematocrit 35.6 % Mean Corpuscular Volume 86.4 fL Mean Corpuscular Hemoglobin 28.9 pg Mean Corpuscular Hemoglobin Concent 33.4 g/dl Platelet Count 251 K/uL Mean Platelet Volume 9.9 fL Neutrophils (%) (Auto) 50.3 % Lymphocytes (%) (Auto) 36.2 % Monocytes (%) (Auto) 11.8 % Eosinophils (%) (Auto) 1.2 % Basophils (%) (Auto) 0.3 % Neutrophils # (Auto) 2.90 K/uL Lymphocytes # (Auto) 2.09 K/uL Monocytes # (Auto) 0.68 K/uL Eosinophils # (Auto) 0.07 K/uL Basophils # (Auto) 0.02 K/uL RDW Standard Deviation 45.5 fL RDW Coefficient of Variation 14.2 % Immature Granulocyte % (Auto) 0.2 % Immature Granulocyte # (Auto) 0.01 K/uL Sodium Level 141 mmol/L Potassium Level 3.5 mmol/L Chloride Level 107 mmol/L Carbon Dioxide Level 24 mmol/L Anion Gap 10.0 mmol/L Blood Urea Nitrogen 6 mg/dl Creatinine 0.47 mg/dl Est Creatinine Clear Calc Drug Dose 209.9 ml/min Estimated GFR () > 150.0 Estimated GFR (Non- 137.3 BUN/Creatinine Ratio 13.2 Random Glucose 207 mg/dl Calcium Level 8.6 mg/dl Test 03/04/17 16:35 Bedside Glucose 171 mg/dl Assessment & Plan 27 year female with history of DM, HTN, Asthma presenting with cough and fever. LEFT SIDED PNEUMONIA INFLUENZA A INFECTION afebrile no leukocytosis - continue Levaquin day 3 Tamiflu Day 3 - PRN Nebs - IV fluids DYSPEPSIA noted in AM Protonix daily HTN -Continue Losartan History Type II Diabetes: Holding Metformin. -HbA1c is 7.0. -Monitor BS and cover with sliding scale -Pharmacy consult for glycemic management. PCOS patient may use own Sprintec Morbid Obesity Code Status: FULL CODE DVT Prophylaxis: Lovenox Disposition: anticipate d/c home when medically stable Current Inpatient Medications: Current Inpatient Medications Medications (Trade) Dose Ordered Sig/Berto Route Start Time Stop Time Status Last Admin Dose Admin Acetaminophen (Tylenol Tab) 650 mg Q4H PRN PO 03/02/17 18:00 04/01/17 17:59 03/03/17 23:50 650 MG Al Hydrox/Mg Hydrox/Simethicone (Maalox Max Susp) 15 ml Q4H PRN PO 03/02/17 18:00 04/01/17 17:59 Magnesium Hydroxide (Milk Of Magnesia Susp) 30 ml Q6H PRN PO 03/02/17 18:00 04/01/17 17:59 Polyethylene (Miralax Powder Packet) 17 gm DAILY PRN PO 03/02/17 18:00 04/01/17 17:59 Zolpidem Tartrate (Ambien Tab) 5 mg HSZ PRN PO 03/02/17 18:00 04/01/17 17:59 Ondansetron HCl 4 mg 4 mg Q6H PRN IV 03/02/17 18:00 04/01/17 17:59 03/04/17 08:47 4 MG Levofloxacin/Prmx (Levaquin / D5W/ Premixed D5W) 150 ml @ 100 mls/hr Q24H IV 03/03/17 18:00 03/10/17 17:59 03/04/17 17:55 100 MLS/HR Oseltamivir Phosphate (Tamiflu Cap) 75 mg BID PO 03/03/17 09:00 03/08/17 08:59 03/04/17 08:49 75 MG Insulin Human Regular (novoLIN-R) SLIDING SCALE IF C... ACHS SC 03/03/17 06:30 04/02/17 06:29 03/04/17 18:02 8 UNITS Glucose (Glucose 40% Gel) 15-30 GRAMS 15 GRAMS... UD PRN PO 03/03/17 05:00 04/02/17 04:59 Glucose (Glucose Chew Tab) 4-8 Tablets 4 Tabl... UD PRN PO 03/03/17 05:00 04/02/17 04:59 Dextrose (Dextrose 50% 50ML Syringe) 25-50ML OF 50% DW IV FOR... UD PRN IV 03/03/17 05:00 04/02/17 04:59 Glucagon (Glucagon Inj) 1 mg UD PRN SQ 03/03/17 05:00 04/02/17 04:59 Miscellaneous Information (Consult Glycemic Management Pharmacy) 1 ea UD PRN N/A 03/03/17 09:23 04/02/17 09:22 Miconazole Nitrate (Desenex Powder) 1 appln BID PRN EXT 03/03/17 09:30 04/02/17 09:29 Albuterol Sulfate (Ventolin 0.5% 2.5MG/0.5ML Neb) 2.5 mg Q6R PRN INH 03/03/17 21:00 04/02/17 20:59 03/04/17 04:08 2.5 MG
[2017-03-04] MEDS ORDERED: PANTOprazole INJ 40 MG in SYRINGE 0 ML IV ONE (19:15)
[2017-03-04] MEDS: NSS + 20MEQ KCL 1000ML 1,000 ML IV SCH (19:45)
[2017-03-05 00:09] VITALS: BP 129/83; PULSE 97; TEMP 36.8; O2SAT 97
[2017-03-05] MEDS: NSS + 20MEQ KCL 1000ML 1,000 ML IV SCH ×2 (04:32→13:47)
[2017-03-05 07:35] VITALS: BP 137/83; PULSE 100; TEMP 36.8; O2SAT 98
[2017-03-05] MEDS: ENOXAPARIN 40 MG/0.4 ML SYR SQ SCH (08:15)
[2017-03-05] MEDS: OSELTAMIVIR PHOSPHATE 75 MG CAP PO SCH ×2 (08:15→20:51)
[2017-03-05] MEDS: INSULIN HUMAN REGULAR SC SCH ×4 (08:23→20:55)
[2017-03-05] MEDS: METFORMIN HCL 500 MG TABCR PO SCH ×3 (08:47→17:42)
[2017-03-05] MEDS ORDERED: PHARMACY GLYCEMIC MGMT CONSULT STA (11:06)
[2017-03-05] MEDS: PANTOprazole INJ 40 MG in SYRINGE 0 ML IV SCH (11:39)
[2017-03-05] MEDS ORDERED: INSULIN HUMAN NPH SC ONE (11:45)
[2017-03-05] MEDS ORDERED: LEVALBUTEROL/IPRATROPIUM NEB INH SCH (12:00)
--- NOTE | 2017-03-05 12:22 | Progress Note ---
Medicine Progress Note Date & Time of Visit: Mar 05, 2017 at 12:18. Subjective seen sitting up in bed today, appears comfortable overall however, felt more chest congestion this AM, and seems to be coughing more no dyspnea on the time of my exam no nausea this AM, no diarrhea no other symptoms Objective Last 8 Hrs Date Time Temp Pulse Resp B/P Pulse Ox O2 Delivery O2 Flow Rate FiO2 03/05/17 09:14 Room Air 03/05/17 07:35 36.8 100 19 137/83 98 Room Air Physical Exam: General- oriented x 3, not in distress, speaks in sentences with no effort Eyes- anicteric Neck- no JVD Lungs- (+) scatted crackles bilaterally, occasional mild scattered wheeze Heart- normal rate, regular rhythm; no murmurs Abdomen- normal bowel sounds, soft, nontender Extremities- no pretibial edema, no calf tenderness Neuro- alert, oriented x 3; no gross focal deficits Skin- warm & dry Laboratory Results: Last 24 Hours Test 03/04/17 16:35 03/04/17 20:04 03/05/17 07:23 03/05/17 11:38 Bedside Glucose 171 mg/dl 199 mg/dl 184 mg/dl 172 mg/dl Assessment & Plan 27 year female with history of DM, HTN, Asthma presenting with cough and fever. LEFT SIDED PNEUMONIA INFLUENZA A INFECTION - afebrile no leukocytosis - increased congestion and cough, crackles today - add Prednisone 40mg daily add nebs q4h - continue Levaquin day 4 Tamiflu Day 4 - IV fluids -- monitor DYSPEPSIA added Protonix daily resolved HTN -Continue Losartan History Type II Diabetes: Holding Metformin. -HbA1c is 7.0. -Monitor BS and cover with sliding scale -Pharmacy consult for glycemic management. PCOS patient may use own Sprintec Morbid Obesity Code Status: FULL CODE DVT Prophylaxis: Lovenox Disposition: anticipate d/c home when medically stable Current Inpatient Medications: Current Inpatient Medications Medications (Trade) Dose Ordered Sig/Berto Route Start Time Stop Time Status Last Admin Dose Admin Acetaminophen (Tylenol Tab) 650 mg Q4H PRN PO 03/02/17 18:00 04/01/17 17:59 03/03/17 23:50 650 MG Al Hydrox/Mg Hydrox/Simethicone (Maalox Max Susp) 15 ml Q4H PRN PO 03/02/17 18:00 04/01/17 17:59 Magnesium Hydroxide (Milk Of Magnesia Susp) 30 ml Q6H PRN PO 03/02/17 18:00 04/01/17 17:59 Polyethylene (Miralax Powder Packet) 17 gm DAILY PRN PO 03/02/17 18:00 04/01/17 17:59 Zolpidem Tartrate (Ambien Tab) 5 mg HSZ PRN PO 03/02/17 18:00 04/01/17 17:59 Ondansetron HCl 4 mg 4 mg Q6H PRN IV 03/02/17 18:00 04/01/17 17:59 03/04/17 08:47 4 MG Levofloxacin/Prmx (Levaquin / D5W/ Premixed D5W) 150 ml @ 100 mls/hr Q24H IV 03/03/17 18:00 03/10/17 17:59 03/04/17 17:55 100 MLS/HR Oseltamivir Phosphate (Tamiflu Cap) 75 mg BID PO 03/03/17 09:00 03/08/17 08:59 03/05/17 08:15 75 MG Insulin Human Regular (novoLIN-R) SLIDING SCALE IF C... ACHS SC 03/03/17 06:30 04/02/17 06:29 03/05/17 11:49 10 UNITS Glucose (Glucose 40% Gel) 15-30 GRAMS 15 GRAMS... UD PRN PO 03/03/17 05:00 04/02/17 04:59 Glucose (Glucose Chew Tab) 4-8 Tablets 4 Tabl... UD PRN PO 03/03/17 05:00 04/02/17 04:59 Dextrose (Dextrose 50% 50ML Syringe) 25-50ML OF 50% DW IV FOR... UD PRN IV 03/03/17 05:00 04/02/17 04:59 Glucagon (Glucagon Inj) 1 mg UD PRN SQ 03/03/17 05:00 04/02/17 04:59 Miscellaneous Information (Consult Glycemic Management Pharmacy) 1 ea UD PRN N/A 03/03/17 09:23 04/02/17 09:22 Miconazole Nitrate 1 appln 1 appln BID PRN EXT 03/03/17 09:30 04/02/17 09:29 Pantoprazole Sodium/Syringe (Protonix Inj/ Syringe) 10 ml @ 5 mls/min DAILY@11 IV 03/05/17 11:00 04/04/17 10:59 03/05/17 11:39 5 MLS/MIN Enoxaparin Sodium 40 mg 40 mg QAM SQ 03/05/17 09:00 04/04/17 08:59 03/05/17 08:15 40 MG Potassium Chloride/Sodium Chloride (Nss + 20meq KCl 1000ml) 1,000 ml @ 100 mls/hr Q10H IV 03/04/17 18:15 04/03/17 18:14 03/05/17 04:32 100 MLS/HR Miscellaneous Information (Order Awaiting Action) 1 ea QS N/A 03/05/17 00:00 04/04/17 00:00 Metformin HCl (Glucophage Extended Rel Tab) 500 mg TIDM PO 03/05/17 08:30 04/04/17 08:29 03/05/17 11:59 500 MG Prednisone (PredniSONE TAB) 30 mg DAILY PO 03/06/17 09:00 04/05/17 08:59 Ipratropium Vina (Atrovent 0.02% 0.5MG/2.5ML Neb) 0.5 mg Q4RWA INH 03/05/17 12:00 04/04/17 11:59 Levalbuterol (Xopenex 1.25MG/ 0.5ML Neb) 1.25 mg Q4RWA INH 03/05/17 12:00 04/04/17 11:59
--- NOTE | 2017-03-05 12:26 | Pharmacy Progress Note ---
Glycemic Control: Progress Nt Date of Service Mar 05, 2017. Scope Glycemic Pharmacist consulted by Dr Loyd on 03/03/2017 for glycemic control and to write orders per [facility] inpatient glycemic control protocol. Objective Accuchecks BSG (last 24hrs): Test 03/04/17 16:35 03/04/17 20:04 03/05/17 07:23 Bedside Glucose 171 mg/dl (70-90) 199 mg/dl (70-90) 184 mg/dl (70-90) HbA1c: Test 03/03/17 07:19 Hemoglobin A1c 7.0 % (4.5-5.6) H Recent Pertinent Medications Outpatient Anti-diabetic Regimen: * metformin ER 500 mg TID (Confirmed with [facility]--> updated medication reconciliation) * A1c = 7.0 % 03/03/2017 The patient is currently receiving: * Correctional Insulin: Regular Insulin Correction per scale ACHS Goal Range: Low 100 mg/dL - High 140 mg/dL Correction Factor: 25 mg/dL/unit * Prandial insulin: Per carb ratio of 1 unit per 8 grams CHO consumed * Oral Agents: NONE Risk Factors for Insulin Resistance: * Infection: influenza A positive plus concern for superimposed bacterial infection * Steroids: Prednisone 30 mg daily starting 03/05/2017 * Diet: type 2 diabetic diet Assessment & Plan ASSESSMENT: * ADA & AACE recommend a goal blood sugar range 140-180 mg/dl for the majority of critically ill & non-critically ill patients. However, more stringent targets may be selected in individual cases. * From Note 03/03/2017 * Ms Alvarado is a 27 y/o F admitted with a positive influenza swab and concern for superimposed bacterial infection. The patient remains febrile, but her lactic acid has decreased from 3.2 mg/dL to 1.4 mg/dL. * As the patient is sick currently, her blood sugars may be higher than normal. However, since she is reasonably well controlled at home with her current regimen, tighter blood sugar control is reasonable so a goal range of 100-140 mg /dL is chosen. * The patient's correction factor and carbohydrate ratio will be tightened as the patient's blood sugar increased from 168 mg/dL this AM to 275 mg/dL this afternoon. This indicates a more aggressive carbohydrate coverage is needed along with a correction factor. * The patient is currently receiving regular insulin. Novolog is preferable to regular insulin as there is potential stacking of doses with regular insulin and better control. However, since the patient already received a dose of Regular insulin, it will be continued unless issues arise. From Note 03/04/2017 * Ms. Alvarado rec'd 22 units of insulin yesterday w/ BSGs all above goal * At this point, it appears she may need some basal insulin but this may only be temporary with the current infection * Will plan to give a one time dose of Lantus and tighten the CR slightly, then f/u tomorrow * May consider resuming metformin tomorrow as long as there are no contraindications 03/05/2017 * Ms Jackson received approximately 30 units of insulin yesterday which included a one time dose of Lantus 10 units. Her fasting blood sugar this morning is improved at 184 mg/dL compared to 212 mg/dL on 03/04/2017. * The patient remains ill; physician today started prednisone 30 mg daily which will affect post-prandial blood sugars specifically. Due to this type of effect , the carbohydrate ratio and correction factor will be tightened to what is recommended by weight-based dosing with a stress of 2. This most closely corresponds with steroid dosing. Home metformin will also be restarted which should help reduce blood sugars. There are no contraindications. * Also, since the patient's fasting blood sugar was also elevated this morning, a one time dose of NPH with the first dose of prednisone will be started. This most closely mimics once daily steroid dosing. For prednisone 30 mg daily, recommended dosing is 0.3 units/kg; however, with the tightening of regular insulin a lower dose of NPH 10 units x 1 is utilized. This may be necessary tomorrow depending on blood sugars today and tomorrow. PLAN FOR INPATIENT GLYCEMIC CONTROL: * NPH 10 units x 1 dose with oral prednisone * Correctional Insulin with REGULAR per scale ACHS * Goal Range: Low 100 mg/dL - High 140 mg/dL * TIGHTENING Correction Factor: 20 mg/dL/unit * TIGHTENING Nutritional / Prandial insulin per carb ratio of 1 unit per 7 grams CHO consumed Recommendations for discharge: As patient is reasonable controlled on metformin ER 500 mg TID at home, it is reasonable to restart metformin as an outpatient. Thank you.
[2017-03-05] MEDS: MOMETASONE FUROATE 14 PUFF/1 INHALER INH SCH (13:47)
[2017-03-05] MEDS: LORATADINE 10 MG TAB PO SCH (13:47)
[2017-03-05] MEDS: IPRATROPIUM BROMIDE NEB SOLN 0.02% 2.5 ML VIAL INH SCH ×3 (14:30→19:35)
[2017-03-05] MEDS: LEVALBUTEROL 1.25MG/0.5ML NEB INH SCH ×3 (14:31→19:35)
[2017-03-05 14:32] VITALS: PULSE 103; O2SAT 97
[2017-03-05 15:35] VITALS: BP 160/90; PULSE 105; TEMP 36.4; O2SAT 96
[2017-03-05] MEDS: LEVOFLOXACIN / D5W 750 MG in PREMIXED IN D5W 150 ML IV SCH (18:27)
[2017-03-05 19:35] VITALS: PULSE 103; O2SAT 98
[2017-03-05] MEDS: LOSARTAN POTASSIUM 50 MG TAB PO SCH (20:51)
[2017-03-05] MEDS: MONTELUKAST SOD 10 MG TAB PO SCH (20:51)
[2017-03-05] MEDS: CHOLESTYRAMINE LIGHT 4 GM PKT PO SCH (21:35)
[2017-03-06] VITALS (8 sets, daily range): BP systolic 131–135; BP diastolic 83–85; PULSE 90–106; TEMP 36.8; O2SAT 96–100
[2017-03-06] MEDS: NSS + 20MEQ KCL 1000ML 1,000 ML IV SCH ×2 (02:21→09:49)
[2017-03-06] MEDS: LEVALBUTEROL 1.25MG/0.5ML NEB INH SCH ×4 (07:15→19:44)
[2017-03-06] MEDS: IPRATROPIUM BROMIDE NEB SOLN 0.02% 2.5 ML VIAL INH SCH ×4 (07:15→19:44)
[2017-03-06] MEDS: LORATADINE 10 MG TAB PO SCH (07:55)
[2017-03-06] MEDS: LACTOBACILLUS ACIDOPHILUS (FLORANEX) TAB PO SCH (07:55)
[2017-03-06] MEDS: METFORMIN HCL 500 MG TABCR PO SCH ×3 (07:55→17:22)
[2017-03-06] MEDS: OSELTAMIVIR PHOSPHATE 75 MG CAP PO SCH ×2 (07:56→20:58)
[2017-03-06] MEDS: CEROVITE ADV FORMULA TAB PO SCH (07:57)
[2017-03-06] MEDS: ENOXAPARIN 40 MG/0.4 ML SYR SQ SCH (07:58)
[2017-03-06] MEDS: MOMETASONE FUROATE 14 PUFF/1 INHALER INH SCH (07:58)
[2017-03-06] MEDS: SODIUM CHLORIDE 0.65% NA SOLN 45 ML (OCEAN) SCH (08:00)
[2017-03-06] MEDS: INSULIN HUMAN REGULAR SC SCH ×4 (08:12→21:05)
[2017-03-06] MEDS: INSULIN HUMAN NPH SC SCH (08:54)
[2017-03-06] MEDS ORDERED: [UNRECOGNIZED DRUG - OTHER] NAE SCH (09:00)
--- NOTE | 2017-03-06 10:16 | Pharmacy Progress Note ---
Glycemic Control: Progress Nt Date of Service Mar 06, 2017. Scope Glycemic Pharmacist consulted by Dr Loyd on 03/03 for glycemic control and to write orders per [facility] inpatient glycemic control protocol. Objective Accuchecks BSG (last 24hrs): Test 03/05/17 11:38 03/05/17 16:29 03/05/17 20:42 Bedside Glucose 172 mg/dl (70-90) 192 mg/dl (70-90) 265 mg/dl (70-90) HbA1c: Test 03/03/17 07:19 Hemoglobin A1c 7.0 % (4.5-5.6) H Recent Pertinent Medications Outpatient Anti-diabetic Regimen: * Metformin ER 500 mg TID - was confirmed w/ pharmacy and outpt physician The patient is currently receiving: * Basal insulin: 03/04 Lantus 10 units x 1 03/05 NPH 10 units x 1 * Correctional Insulin: Regular Correction per scale ACHS Goal Range: Low 100 mg/dL - High 140 mg/dL Correction Factor: 20 mg/dL/unit * Prandial insulin: Per carb ratio of 1 unit per 7 grams CHO consumed * Oral Agents: metformin ER 500 mg TID Risk Factors for Insulin Resistance: * Infection: pneumonia/ flu * Steroids: prednisone 30 mg daily started yesterday * Diet:type 2 diabetes/ AHA - ave of 50 gm CHO w/ each meal Assessment & Plan ASSESSMENT: From 03/03/17 note: * Ms Alvarado is a 27 y/o F admitted with a positive influenza swab and concern for superimposed bacterial infection. The patient remains febrile, but her lactic acid has decreased from 3.2 mg/dL to 1.4 mg/dL. * As the patient is sick currently, her blood sugars may be higher than normal. However, since she is reasonably well controlled at home with her current regimen, tighter blood sugar control is reasonable so a goal range of 100-140 mg /dL is chosen. * The patient's correction factor and carbohydrate ratio will be tightened as the patient's blood sugar increased from 168 mg/dL this AM to 275 mg/dL this afternoon. This indicates a more aggressive carbohydrate coverage is needed along with a correction factor. * The patient is currently receiving regular insulin. Novolog is preferable to regular insulin as there is potential stacking of doses with regular insulin and better control. However, since the patient already received a dose of Regular insulin, it will be continued unless issues arise. 03/04/17 * Ms. Alvarado rec'd 22 units of insulin yesterday w/ BSGs all above goal * At this point, it appears she may need some basal insulin but this may only be temporary with the current infection * Will plan to give a one time dose of Lantus and tighten the CR slightly, then f/u tomorrow * May consider resuming metformin tomorrow as long as there are no contraindications 03/05/2017 * Ms Jackson received approximately 30 units of insulin yesterday which included a one time dose of Lantus 10 units. Her fasting blood sugar this morning is improved at 184 mg/dL compared to 212 mg/dL on 03/04/2017. * The patient remains ill; physician today started prednisone 30 mg daily which will affect post-prandial blood sugars specifically. Due to this type of effect , the carbohydrate ratio and correction factor will be tightened to what is recommended by weight-based dosing with a stress of 2. This most closely corresponds with steroid dosing. Home metformin will also be restarted which should help reduce blood sugars. There are no contraindications. * Also, since the patient's fasting blood sugar was also elevated this morning, a one time dose of NPH with the first dose of prednisone will be started. This most closely mimics once daily steroid dosing. For prednisone 30 mg daily, recommended dosing is 0.3 units/kg; however, with the tightening of regular insulin a lower dose of NPH 10 units x 1 is utilized. This may be necessary tomorrow depending on blood sugars today and tomorrow. 03/06/17 * Trial of NPH w/ prednisone seemed to work well yesterday - BSGs ranged from 172-265 in the past 24 hours * She rec'd 45 units of insulin yesterday, in addition to the metformin that was restarted * I feel comfortable increasing the dose of NPH to provide more coverage for the prednisone and so she requires less correctional * Will most likely need to loosen the CR and/or CF but will wait to see what BSGs look like today prior to doing this PLAN FOR INPATIENT GLYCEMIC CONTROL: * Increase NPH to 20 units qAM w/ prednisone * Continue Regular insulin ACHS * Goal 100-140 * CF 20 * CR 7 * Continue metformin ER 500 mg TID RECOMMENDATIONS FOR DISCHARGE: * A1c indicates good outpatient control * Continue metformin on d/c * If pt to be discharged on steroids, may consider a dose of NPH to coincide with this - consider calling pharmacy to discuss plan if this will happen Thank you.
--- NOTE | 2017-03-06 10:29 | Pharmacy Progress Note ---
Automatic IV to PO Conversion Date of Service: Mar 06, 2017. Scope Pharmacy has identified patient as an appropriate candidate for automatic intravenous to oral conversion. Eligible medication: Levaquin 750 mg IV every 24 hours. Day # 5 of IV therapy. Subjective The patient is a 27 year old female admitted on Mar 02, 2017 at 17:56 for Lll Pneumonia. Objective Vital Signs: Vital Signs Past 12 Hours Date Time Temp Pulse Resp B/P Pulse Ox O2 Delivery O2 Flow Rate FiO2 03/06/17 08:00 Room Air 03/06/17 07:16 36.8 94 18 135/85 100 Room Air 03/06/17 07:15 90 18 98 Room Air 03/05/17 23:42 Room Air Height (Feet): 5 Height (Inches): 2.00 Weight (Kilograms): 106.500 Type of Diet: AHA Phase I, Diabetic Assessment & Plan The Infectious Disease Society and the [place] [employer] recommend conversion to oral therapy once a patient is determined to be clinically stable and are able to tolerate oral medications. Patient identified as appropriate candidate for IV to PO conversion of Levaquin based on the following criteria: * Afebrile for greater than or equal to 12 hours * Receiving oral/enteral medications and/or tolerating oral/enteral diet for greater than 24 hours * Improvement in clinical condition evidenced by .. WBC count normal, resolution of signs/symptoms of illness * Hemodynamically stable Automatic conversion to: Levaquin 750 mg PO every 24 hours
[2017-03-06] MEDS: PANTOprazole INJ 40 MG in SYRINGE 0 ML IV SCH (12:11)
[2017-03-06] MEDS: LEVOFLOXACIN 750 MG TAB PO SCH (12:16)
--- NOTE | 2017-03-06 16:32 | Progress Note ---
Medicine Progress Note Date & Time of Visit: Mar 06, 2017 at 16:26. Subjective patient states she feels improved compared to yesterday coughing less than yesterday no nausea, diarrhea no fever/chills has mild tremors after neb treatment no other symptoms Objective Last 8 Hrs Date Time Temp Pulse Resp B/P Pulse Ox O2 Delivery O2 Flow Rate FiO2 03/06/17 16:00 96 Room Air 03/06/17 15:37 106 16 96 Room Air 03/06/17 15:21 36.8 102 17 131/83 96 Room Air 03/06/17 11:19 100 18 99 Room Air Physical Exam: General- oriented x 3, not in distress, speaks in sentences with no effort Eyes- anicteric Lungs- (+) scatted crackles on the left base, occasional mild expiratory wheeze Heart- normal rate, regular rhythm; no murmurs Abdomen- normal bowel sounds, soft, nontender Extremities- no pretibial edema, no calf tenderness Neuro- alert, oriented x 3; no gross focal deficits Skin- warm & dry Laboratory Results: Last 24 Hours Test 03/05/17 16:29 03/05/17 20:42 Bedside Glucose 192 mg/dl 265 mg/dl Assessment & Plan 27 year female with history of DM, HTN, Asthma presenting with cough and fever. LEFT SIDED PNEUMONIA INFLUENZA A INFECTION - remains afebrile no leukocytosis - improving today - change Asmanex to Advair change Nebs to q6h continue Prednisone on Levaquin day 5 and Tamiflu Day 5 DYSPEPSIA, Resolved Protonix daily HTN -Continue Losartan History Type II Diabetes -HbA1c is 7.0. -Pharmacy consult for glycemic management. - on Insulin and Metformin PCOS patient may use own Sprintec Morbid Obesity Code Status: FULL CODE DVT Prophylaxis: Lovenox Disposition: anticipate d/c home tomorrow Current Inpatient Medications: Current Inpatient Medications Medications (Trade) Dose Ordered Sig/Berto Route Start Time Stop Time Status Last Admin Dose Admin Acetaminophen (Tylenol Tab) 650 mg Q4H PRN PO 03/02/17 18:00 04/01/17 17:59 03/03/17 23:50 650 MG Al Hydrox/Mg Hydrox/Simethicone (Maalox Max Susp) 15 ml Q4H PRN PO 03/02/17 18:00 04/01/17 17:59 Magnesium Hydroxide (Milk Of Magnesia Susp) 30 ml Q6H PRN PO 03/02/17 18:00 04/01/17 17:59 Polyethylene (Miralax Powder Packet) 17 gm DAILY PRN PO 03/02/17 18:00 04/01/17 17:59 Zolpidem Tartrate (Ambien Tab) 5 mg HSZ PRN PO 03/02/17 18:00 04/01/17 17:59 Ondansetron HCl (Zofran Inj) 4 mg Q6H PRN IV 03/02/17 18:00 04/01/17 17:59 03/04/17 08:47 4 MG Oseltamivir Phosphate (Tamiflu Cap) 75 mg BID PO 03/03/17 09:00 03/08/17 08:59 03/06/17 07:56 75 MG Insulin Human Regular (novoLIN-R) SLIDING SCALE IF C... ACHS SC 03/03/17 06:30 04/02/17 06:29 03/06/17 12:31 11 UNITS Glucose (Glucose 40% Gel) 15-30 GRAMS 15 GRAMS... UD PRN PO 03/03/17 05:00 04/02/17 04:59 Glucose (Glucose Chew Tab) 4-8 Tablets 4 Tabl... UD PRN PO 03/03/17 05:00 04/02/17 04:59 Dextrose (Dextrose 50% 50ML Syringe) 25-50ML OF 50% DW IV FOR... UD PRN IV 03/03/17 05:00 04/02/17 04:59 Glucagon (Glucagon Inj) 1 mg UD PRN SQ 03/03/17 05:00 04/02/17 04:59 Miscellaneous Information (Consult Glycemic Management Pharmacy) 1 ea UD PRN N/A 03/03/17 09:23 04/02/17 09:22 Miconazole Nitrate 1 appln 1 appln BID PRN EXT 03/03/17 09:30 04/02/17 09:29 Pantoprazole Sodium/Syringe (Protonix Inj/ Syringe) 10 ml @ 5 mls/min DAILY@11 IV 03/05/17 11:00 04/04/17 10:59 03/06/17 12:11 5 MLS/MIN Enoxaparin Sodium (Lovenox Inj) 40 mg QAM SQ 03/05/17 09:00 04/04/17 08:59 03/06/17 07:58 40 MG Miscellaneous Information (Order Awaiting Action) 1 ea QS N/A 03/05/17 00:00 04/04/17 00:00 Metformin HCl (Glucophage Extended Rel Tab) 500 mg TIDM PO 03/05/17 08:30 04/04/17 08:29 03/06/17 12:11 500 MG Prednisone (PredniSONE TAB) 30 mg DAILY PO 03/06/17 09:00 04/05/17 08:59 03/06/17 07:56 30 MG Losartan Potassium (coZAAR TAB) 50 mg QPM PO 03/05/17 21:00 04/04/17 20:59 03/05/17 20:51 50 MG Montelukast Sodium (Singulair Tab) 10 mg QPM PO 03/05/17 21:00 04/04/17 20:59 03/05/17 20:51 10 MG Multivitamins/ Minerals (Multivitamin W/ Minerals Tab) 1 tab QAM PO 03/06/17 09:00 04/05/17 08:59 03/06/17 07:57 1 TAB Sodium Chloride (Graham Nasal [place]) 1 sprays DAILY NA 03/06/17 09:00 04/05/17 08:59 Cholestyramine Resin (Questran Powder Light) 8 gm DAILY@2200 PO 03/05/17 22:00 04/04/17 21:59 Lactobacillus Acidophilus (Floranex Tab) 1 tab DAILY PO 03/06/17 09:00 04/05/17 08:59 03/06/17 07:55 1 TAB Loratadine (Claritin Tab) 10 mg QAM PO 03/05/17 13:30 04/04/17 13:29 03/06/17 07:55 10 MG Mometasone Furoate (Asmanex 220MCG Inh) 1 puff QAM INH 03/05/17 13:30 04/04/17 13:29 03/06/17 07:58 1 PUFF Miscellaneous Information (Order Awaiting Action) 1 ea QS N/A 03/05/17 16:00 04/04/17 15:59 Insulin Human NPH (novoLIN-N NPH) 20 units QAM SC 03/06/17 09:00 04/05/17 08:59 03/06/17 08:54 20 UNITS Levofloxacin (Levaquin Tab) 750 mg DAILY@11 PO 03/06/17 11:00 03/10/17 10:59 03/06/17 12:16 750 MG Ipratropium [place] (Atrovent 0.02% 0.5MG/2.5ML Neb) 0.5 mg Q6RWA INH 03/06/17 21:00 04/05/17 20:59 UNV Levalbuterol (Xopenex 1.25MG/ 0.5ML Neb) 1.25 mg Q6RWA INH 03/06/17 21:00 04/05/17 20:59 UNV
[2017-03-06] MEDS: FLUTICASONE/SALMETEROL 250/50 (ADVAIR) 14 PUFF/1 INHALER INH SCH (20:57)
[2017-03-06] MEDS: MONTELUKAST SOD 10 MG TAB PO SCH (20:57)
[2017-03-06] MEDS: LOSARTAN POTASSIUM 50 MG TAB PO SCH (20:58)
[2017-03-06] MEDS: CHOLESTYRAMINE LIGHT 4 GM PKT PO SCH (22:22)
[2017-03-07] VITALS: O2SAT 100
[2017-03-07 00:07] VITALS: BP 128/83; PULSE 92; TEMP 36.5; O2SAT 98
[2017-03-07 07:05] VITALS: PULSE 109; O2SAT 98
[2017-03-07] MEDS: LEVALBUTEROL 1.25MG/0.5ML NEB INH SCH ×2 (07:05→14:36)
[2017-03-07] MEDS: IPRATROPIUM BROMIDE NEB SOLN 0.02% 2.5 ML VIAL INH SCH ×2 (07:05→14:35)
[2017-03-07 07:40] VITALS: BP 124/81; PULSE 101; TEMP 36.8; O2SAT 96
[2017-03-07] MEDS: METFORMIN HCL 500 MG TABCR PO SCH ×2 (08:16→13:00)
[2017-03-07] MEDS: FLUTICASONE/SALMETEROL 250/50 (ADVAIR) 14 PUFF/1 INHALER INH SCH (08:17)
[2017-03-07] MEDS: LORATADINE 10 MG TAB PO SCH (08:17)
[2017-03-07] MEDS: OSELTAMIVIR PHOSPHATE 75 MG CAP PO SCH (08:18)
[2017-03-07] MEDS: CEROVITE ADV FORMULA TAB PO SCH (08:19)
[2017-03-07] MEDS: LACTOBACILLUS ACIDOPHILUS (FLORANEX) TAB PO SCH (08:19)
[2017-03-07] MEDS: ENOXAPARIN 40 MG/0.4 ML SYR SQ SCH (08:20)
[2017-03-07] MEDS: INSULIN HUMAN NPH SC SCH (08:24)
[2017-03-07] MEDS: INSULIN HUMAN REGULAR SC SCH ×2 (08:25→13:07)
[2017-03-07] MEDS: SODIUM CHLORIDE 0.65% NA SOLN 45 ML (OCEAN) SCH (08:26)
--- NOTE | 2017-03-07 11:20 | Pharmacy Progress Note ---
Glycemic Control: Progress Nt Date of Service Mar 07, 2017. Scope Glycemic Pharmacist consulted by Dr Loyd on 03/03/17 for glycemic control and to write orders per [facility] inpatient glycemic control protocol. Objective HbA1c: Test 03/03/17 07:19 Hemoglobin A1c 7.0 % (4.5-5.6) H Recent Pertinent Medications Outpatient Anti-diabetic Regimen: * Metformin 500mg ER TID w/ meals * A1c = 7 % 03/03/17 The patient is currently receiving: * Basal insulin: NPH 10 units every 24 hours - given w/ breakfast * Correctional Insulin: Novolog Correction per scale ACHS Goal Range: Low 100 mg/dL - High 140 mg/dL Correction Factor: 20 mg/dL/unit * Prandial insulin: Per carb ratio of 1 unit per 7 grams CHO consumed * Oral Agents: Metformin ER 500mg TID w/ meals Risk Factors for Insulin Resistance: * Steroids: Prednisone 30 mg PO daily * Infection: Influenza A / LLL PNX; receiving Tamiflu and Levofloxacin * Pressors: n/a * IVF: n/a * Recent Surgery: n/a * Diet: ordered T2DM / AHA diet and tolerating well * Mechanical Ventilation: n/a Assessment & Plan ASSESSMENT: From 03/03/17 note: * Ms Alvarado is a 27 y/o F admitted with a positive influenza swab and concern for superimposed bacterial infection. The patient remains febrile, but her lactic acid has decreased from 3.2 mg/dL to 1.4 mg/dL. * As the patient is sick currently, her blood sugars may be higher than normal. However, since she is reasonably well controlled at home with her current regimen, tighter blood sugar control is reasonable so a goal range of 100-140 mg /dL is chosen. * The patient's correction factor and carbohydrate ratio will be tightened as the patient's blood sugar increased from 168 mg/dL this AM to 275 mg/dL this afternoon. This indicates a more aggressive carbohydrate coverage is needed along with a correction factor. * The patient is currently receiving regular insulin. Novolog is preferable to regular insulin as there is potential stacking of doses with regular insulin and better control. However, since the patient already received a dose of Regular insulin, it will be continued unless issues arise. 03/04/17 * Ms. Alvarado rec'd 22 units of insulin yesterday w/ BSGs all above goal * At this point, it appears she may need some basal insulin but this may only be temporary with the current infection * Will plan to give a one time dose of Lantus and tighten the CR slightly, then f/u tomorrow * May consider resuming metformin tomorrow as long as there are no contraindications 03/05/2017 * Ms Jackson received approximately 30 units of insulin yesterday which included a one time dose of Lantus 10 units. Her fasting blood sugar this morning is improved at 184 mg/dL compared to 212 mg/dL on 03/04/2017. * The patient remains ill; physician today started prednisone 30 mg daily which will affect post-prandial blood sugars specifically. Due to this type of effect , the carbohydrate ratio and correction factor will be tightened to what is recommended by weight-based dosing with a stress of 2. This most closely corresponds with steroid dosing. Home metformin will also be restarted which should help reduce blood sugars. There are no contraindications. * Also, since the patient's fasting blood sugar was also elevated this morning, a one time dose of NPH with the first dose of prednisone will be started. This most closely mimics once daily steroid dosing. For prednisone 30 mg daily, recommended dosing is 0.3 units/kg; however, with the tightening of regular insulin a lower dose of NPH 10 units x 1 is utilized. This may be necessary tomorrow depending on blood sugars today and tomorrow. 03/06/17 * Trial of NPH w/ prednisone seemed to work well yesterday - BSGs ranged from 172-265 in the past 24 hours * She rec'd 45 units of insulin yesterday, in addition to the metformin that was restarted * I feel comfortable increasing the dose of NPH to provide more coverage for the prednisone and so she requires less correctional * Will most likely need to loosen the CR and/or CF but will wait to see what BSGs look like today prior to doing this 03/07/17 * BSGs ranged 135-229 over the last 24 hours * Fasting BSG 135 at goal today while receiving NPH 20 units daily w/ breakfast - no change in basal required * Post-prandial BSG elevations observed w/ 2 of 3 checks yesterday. Prednisone dose unchanged today. Will increase the prandial insulin dose slightly. PLAN FOR INPATIENT GLYCEMIC CONTROL: * Continuing NPH 20 units SQ w/ breakfast * Continuing correction factor 20 mg/dl/unit * Changing carb ratio to 1 unit per 6 grams CHO consumed * Continuing goal range Low 100 mg/dL - High 140 mg/dL RECOMMENDATIONS FOR DISCHARGE: * Resume home dose of Metformin ER * Please note that the plan above was derived based on current level of insulin resistance and hospital stress. These recommendations are appropriate for inpatient admission only. Plan of care upon discharge will need to be reassessed to avoid potential outpatient hypo/hyperglycemia. Thank you.
[2017-03-07] MEDS: LEVOFLOXACIN 750 MG TAB PO SCH (13:00)
[2017-03-07] MEDS: PANTOprazole INJ 40 MG in SYRINGE 0 ML IV SCH (13:07)
[2017-03-07 13:52] VITALS: BP 124/81; PULSE 101; TEMP 36.8; O2SAT 96
--- NOTE | 2017-03-07 14:03 | Progress Note ---
Medicine Progress Note Date & Time of Visit: Mar 07, 2017 at 13:45. Subjective states she feels improved today ambulating with less dyspnea less chest congestion, cough and phlegm no nausea, abdominal pain, diarrhea no other symptoms states she is ready and would like to be discharged today Objective Last 8 Hrs Date Time Temp Pulse Resp B/P Pulse Ox O2 Delivery O2 Flow Rate FiO2 03/07/17 08:00 Room Air 03/07/17 07:40 36.8 101 18 124/81 96 03/07/17 07:05 109 16 98 Room Air Physical Exam: General- oriented x 3, not in distress, speaks in sentences with no effort Eyes- anicteric Lungs- mild crackles left base ,no wheezing, good air entry bilaterally Heart- normal rate, regular rhythm; no murmurs Abdomen- normal bowel sounds, soft, nontender Extremities- no pretibial edema, no calf tenderness Neuro- alert, oriented x 3; no gross focal deficits Skin- warm & dry Laboratory Results: Last 24 Hours Test 03/06/17 16:33 03/06/17 20:28 03/07/17 07:30 03/07/17 11:02 Bedside Glucose 229 mg/dl 159 mg/dl 135 mg/dl 260 mg/dl Assessment & Plan 27 year female with history of DM, HTN, Asthma presenting with cough and fever. LEFT SIDED PNEUMONIA INFLUENZA A INFECTION - remained afebrile no leukocytosis - CXR: Patchy airspace opacity within the left mid to lower lung zone consistent with a pneumonia. - clinically improved overall - received Levaquin 750mg total of 6 days Oseltamivir x 5 days Scheduled Nebs and Tapering prednisone Asmanex changed to Advair - discharge plan: Prednisone 30mg , then taper Nebs q6h and PRN q2-4 hrs for SOB/Wheeze Advair in place of Asmanex - ff up with PCP on Saturday 03/10 DYSPEPSIA, Resolved Protonix daily HTN -Continue Losartan History Type II Diabetes -HbA1c is 7.0. -Pharmacy consulted for glycemic management. - on Insulin and Metformin PCOS on Sprintec Morbid Obesity Code Status: FULL CODE DVT Prophylaxis: Lovenox given Disposition: d/c home today ff up with PCP 03/10/17 Current Inpatient Medications: Current Inpatient Medications Medications (Trade) Dose Ordered Sig/[place] Route Start Time Stop Time Status Last Admin Dose Admin Acetaminophen (Tylenol Tab) 650 mg Q4H PRN PO 03/02/17 18:00 04/01/17 17:59 03/03/17 23:50 650 MG Al Hydrox/Mg Hydrox/Simethicone (Maalox Max Susp) 15 ml Q4H PRN PO 03/02/17 18:00 04/01/17 17:59 Magnesium Hydroxide (Milk Of Magnesia Susp) 30 ml Q6H PRN PO 03/02/17 18:00 04/01/17 17:59 Polyethylene (Miralax Powder Packet) 17 gm DAILY PRN PO 03/02/17 18:00 04/01/17 17:59 Zolpidem Tartrate (Ambien Tab) 5 mg HSZ PRN PO 03/02/17 18:00 04/01/17 17:59 Ondansetron HCl (Zofran Inj) 4 mg Q6H PRN IV 03/02/17 18:00 04/01/17 17:59 03/04/17 08:47 4 MG Oseltamivir Phosphate (Tamiflu Cap) 75 mg BID PO 03/03/17 09:00 03/08/17 08:59 03/07/17 08:18 75 MG Insulin Human Regular (novoLIN-R) SLIDING SCALE IF C... ACHS SC 03/03/17 06:30 04/02/17 06:29 03/07/17 13:07 15 UNITS Glucose (Glucose 40% Gel) 15-30 GRAMS 15 GRAMS... UD PRN PO 03/03/17 05:00 04/02/17 04:59 Glucose (Glucose Chew Tab) 4-8 Tablets 4 Tabl... UD PRN PO 03/03/17 05:00 04/02/17 04:59 Dextrose (Dextrose 50% 50ML Syringe) 25-50ML OF 50% DW IV FOR... UD PRN IV 03/03/17 05:00 04/02/17 04:59 Glucagon (Glucagon Inj) 1 mg UD PRN SQ 03/03/17 05:00 04/02/17 04:59 Miscellaneous Information (Consult Glycemic Management Pharmacy) 1 ea UD PRN N/A 03/03/17 09:23 04/02/17 09:22 Miconazole Nitrate 1 appln 1 appln BID PRN EXT 03/03/17 09:30 04/02/17 09:29 Pantoprazole Sodium/Syringe (Protonix Inj/ Syringe) 10 ml @ 5 mls/min DAILY@11 IV 03/05/17 11:00 04/04/17 10:59 03/07/17 13:07 5 MLS/MIN Enoxaparin Sodium (Lovenox Inj) 40 mg QAM SQ 03/05/17 09:00 04/04/17 08:59 03/07/17 08:20 40 MG Miscellaneous Information (Order Awaiting Action) 1 ea QS N/A 03/05/17 00:00 04/04/17 00:00 Metformin HCl (Glucophage Extended Rel Tab) 500 mg TIDM PO 03/05/17 08:30 04/04/17 08:29 03/07/17 13:00 500 MG Prednisone (PredniSONE TAB) 30 mg DAILY PO 03/06/17 09:00 04/05/17 08:59 03/07/17 08:18 30 MG Losartan Potassium (coZAAR TAB) 50 mg QPM PO 03/05/17 21:00 04/04/17 20:59 03/06/17 20:58 50 MG Montelukast Sodium (Singulair Tab) 10 mg QPM PO 03/05/17 21:00 04/04/17 20:59 03/06/17 20:57 10 MG Multivitamins/ Minerals (Multivitamin W/ Minerals Tab) 1 tab QAM PO 03/06/17 09:00 04/05/17 08:59 03/07/17 08:19 1 TAB Sodium Chloride ([place] Nasal [place]) 1 sprays DAILY NA 03/06/17 09:00 04/05/17 08:59 Cholestyramine Resin (Questran Powder Light) 8 gm DAILY@2200 PO 03/05/17 22:00 04/04/17 21:59 03/06/17 22:22 8 GM Lactobacillus Acidophilus (Floranex Tab) 1 tab DAILY PO 03/06/17 09:00 04/05/17 08:59 03/07/17 08:19 1 TAB Loratadine (Claritin Tab) 10 mg QAM PO 03/05/17 13:30 04/04/17 13:29 03/07/17 08:17 10 MG Miscellaneous Information (Order Awaiting Action) 1 ea QS N/A 03/05/17 16:00 04/04/17 15:59 Insulin Human NPH (novoLIN-N NPH) 20 units QAM SC 03/06/17 09:00 04/05/17 08:59 03/07/17 08:24 20 UNITS Levofloxacin (Levaquin Tab) 750 mg DAILY@11 PO 03/06/17 11:00 03/10/17 10:59 03/07/17 13:00 750 MG Ipratropium [place] (Atrovent 0.02% 0.5MG/2.5ML Neb) 0.5 mg Q6RWA INH 03/06/17 21:00 04/05/17 20:59 03/07/17 07:05 0.5 MG Levalbuterol (Xopenex 1.25MG/ 0.5ML Neb) 1.25 mg Q6RWA INH 03/06/17 21:00 04/05/17 20:59 03/07/17 07:05 1.25 MG Salmeterol Xinafoate/ Fluticasone (Advair Diskus 250/50 Inh) 1 puff BID INH 03/06/17 21:00 04/05/17 20:59 03/07/17 08:17 1 PUFF
[2017-03-07] MEDS ORDERED: ATRINS INH (14:09)
[2017-03-07] MEDS ORDERED: PRD10 PO ×2 (14:09→14:16)
[2017-03-07] MEDS ORDERED: XPNINS1255 INH (14:09)
[2017-03-07] MEDS ORDERED: ADVIN25050 INH (14:09)
--- NOTE | 2017-03-07 14:14 | Discharge Instructions ---
Discharge Instructions Date of Service Mar 07, 2017. Admission Reason for Admission: Lll Pneumonia Discharge Discharge Diagnosis / Problem: LEFT SIDED PNEUMONIA, INFLUENZA A INFECTION, ASTHMA EXACERBATION Discharge Goals Goal(s): Diagnostic testing, Therapeutic intervention Activity Recommendations Activity Limitations: as noted below (NO HEAVY EXERTION UNTIL RE-EVALUATED BY PRIMARY CARE PHYSICIAN) . Instructions / Follow-Up Instructions / Follow-Up PLEASE REVIEW YOUR NEW MEDICATION LIST AND FOLLOW INSTRUCTIONS CAREFULLY. ENSURE ADEQUATE DAILY FLUID INTAKE. AMBULATE FREQUENTLY TOLERATED. PLEASE CALL PRIMARY CARE PHYSICIAN OR RETURN TO ER IMMEDIATELY IF WITH RECURRENCE OF SYMPTOMS. FOLLOW UP WITH DR. UNDERWOOD ON Friday03/10/17/ Current Hospital Diet Patient's current hospital diet: Diabetes Type 2 Diet, AHA Diet (Heart Healthy) Discharge Diet Recommended Diet: AHA Diet (Heart Healthy), Diabetes Type 2 Diet Pending Studies Studies pending at discharge: no Laboratory Results Hemoglobin A1c Test 03/03/17 07:19 Range/Units Estimated Average Glucose 154 mg/dl Hemoglobin A1c 7.0 H 4.5-5.6 % Medical Emergencies . Who to Call and When: Medical Emergencies: If at any time you feel your situation is an emergency, please call 911 immediately. . Non-Emergent Contact Non-Emergency issues call your: Primary Care Provider Call Non-Emergent contact if: you have a fever, you have any medication questions . Past History Medical & Surgical History: (1) Diabetes (2) Asthma . "Provider Documentation" section prepared by Dre Salazar. VTE Core Measure Inpt VTE Proph given/why not?: Enoxaparin (Lovenox)SQ, SCD's
[2017-03-07 14:36] VITALS: PULSE 101; O2SAT 98
--- NOTE | 2017-03-08 18:55 | Discharge Summary ---
Discharge Summary Date of Service Mar 08, 2017. Discharge Summary Admission Date: Mar 02, 2017 at 17:56 Discharge Date: Mar 07, 2017 Discharge Disposition: Home Principal Diagnosis: LEFT SIDED PNEUMONIA INFLUENZA A INFECTION Secondary Diagnoses/Problems: PLEASE REFER TO HOSPITAL COURSE BELOW. Pending Studies/Follow-Up: PLEASE REFER TO HOSPITAL COURSE BELOW. Medication Reconciliation New Medications: Fluticasone Prop/Salmeterol (Advair Diskus 250-50 Mcg/Dose) 14 Puff/1 Inhaler Aerp 1 PUFF INH BID for 15 Days, #1 INHA 2 Refills Ipratropium [place] (Ipratropium [place]) 0.5 Mg/2.5 Ml Nebu 0.5 MG INH Q6RWA for 7 Days, #30 UNITS 2 Refills may use every 2-4 hours as needed for shortness of breath/wheezing Levalbuterol (Levalbuterol) 1.25 Mg/0.5 Ml Nebu 1.25 MG INH Q6RWA for 7 Days, #30 UNITS 2 Refills may use every 2-4 hours as needed for shortness of breath/wheezing Prednisone (Prednisone) 10 Mg Tab 10 MG PO UD for 7 Days, #10 TAB 0 Refills take 3 tabs po daily x 1 day, then take 2 tabs po daily x 2 days, then take 1 tab po daily x 2 days, then take 1/2 tab po daily x 2 days, then STOP Continued Medications: Albuterol Hfa (Ventolin Hfa) 200 Puffs/79400 Mcg Aers 2 PUFFS INH PRN PRN for SOB/Wheezing Ascorbic Acid (Vitamin C) 500 Mg Cap 500 MG PO QAM Azelastine Hcl-Fluticasone Pro (Dymista) 1 Spr Spr 1 SPRY BRENT QAM Cholestyramine (Bulk) (Cholestyramine) 1 Pow Pow 2 PKT PO DAILY Cinnamon (Cinnamon) 500 Mg Tab 500 MG PO QAM Cranberry (Vaccinium Macrocarp (Cranberry) 600 Mg Tab 4200 MG PO QAM Ethinyl Estrad/Norgestimate (Sprintec 28) 1 Tab Tab 1 TAB PO DAILY Guaifenesin Ext Rel (Mucinex Ext Rel) 600 Mg Tab 600 MG PO QAM Lactobacillus (Acidophilus) 1 Cap Cap 1 CAP PO DAILY Loratadine (Allergy) 10 Mg Tab 10 MG PO QAM Losartan Potassium (Cozaar) 50 Mg Tab 50 MG PO QPM Metformin Hcl Er (Glucophage Er) 500 Mg Tab 1 TAB PO TID for 90 Days, #270 TAB 3 Refills Montelukast Sodium (Montelukast Sodium) 10 Mg Tab 10 MG PO QPM Multiple Vitamins W/ Minerals (Centrum) 1 Tab Tab 1 TAB PO QAM Saline ([place] Nasal [place]) 0.65 % Spr 1 SPRAY NA AMPM Discontinued Medications: Mometasone Furoate (Inhalation (Asmanex [place]er 7 Mete) 110 Mcg/Inh Aer 1 PUFF INH QAM Admission Information HPI (per Admitting provider): 27 year old female with known past medical history of Type II Diabetes, Hypertension, Bronchia;l Asthma presents to the ER with complaints of a fever that began three days ago. The patient's fever has been between 102 F and 103 F. At this time, the patient began to have a fever. The next day she took Advil and Tylenol alternating between the two. She then began to experience a productive cough, congestion, a sore throat, and neck pain. She denies any abdominal pain or falls. She did receive a flu shot this year. She went to a walk in clinic twice over the past three days due to the persistently high fever. She has had multiple sick contacts. Physical Exam (per Admitting): General Appearance: WD/WN, + mild distress Head: normocephalic, atraumatic Eyes: normal inspection, PERRL, EOMI, sclerae normal, funduscopic exam normal ENT: normal ENT inspection, hearing grossly normal, TMs normal, + nasal congestion, + pharyngeal erythema Neck: supple, no adenopathy, thyroid normal, no JVD, trachea midline Respiratory/Chest: chest non-tender, lungs clear, + rales (Left Lung base) Cardiovascular: no gallop, no JVD, no murmur, + tachycardia Abdomen/GI: normal bowel sounds, non tender, soft, no organomegaly Back: normal inspection, no CVA tenderness, no muscle spasm, normal range of motion Extremities/Musculoskelatal: normal inspection, no calf tenderness, normal capillary refill, no pedal edema, normal range of motion Neurologic/Psych: alert, normal mood/affect, normal reflexes, oriented x 3 Hospital Course 27 year female with history of DM, HTN, Asthma presenting with cough and fever. LEFT SIDED PNEUMONIA INFLUENZA A INFECTION - remained afebrile no leukocytosis - CXR: Patchy airspace opacity within the left mid to lower lung zone consistent with a pneumonia. - clinically improved overall - received Levaquin 750mg total of 6 days Oseltamivir x 5 days Scheduled Nebs and Tapering prednisone Asmanex changed to Advair - discharge plan: Prednisone 30mg , then taper Nebs q6h and PRN q2-4 hrs for SOB/Wheeze Advair in place of Asmanex - ff up with PCP on Saturday 03/10 DYSPEPSIA, Resolved Protonix daily HTN -Continue Losartan History Type II Diabetes -HbA1c is 7.0. -Pharmacy consulted for glycemic management. - on Insulin and Metformin PCOS on Sprintec Morbid Obesity DVT Prophylaxis: Lovenox given Disposition: d/c home ff up with PCP 03/10/17 Total time spent on discharge = 40 MINUTES This includes examination of the patient, discharge planning, medication reconciliation, and communication with other providers. Discharge Instructions Discharge Instructions Date of Service Mar 07, 2017. Admission Reason for Admission: Lll Pneumonia Discharge Discharge Diagnosis / Problem: LEFT SIDED PNEUMONIA, INFLUENZA A INFECTION, ASTHMA EXACERBATION Discharge Goals Goal(s): Diagnostic testing, Therapeutic intervention Activity Recommendations Activity Limitations: as noted below (NO HEAVY EXERTION UNTIL RE-EVALUATED BY PRIMARY CARE PHYSICIAN) . Instructions / Follow-Up Instructions / Follow-Up PLEASE REVIEW YOUR NEW MEDICATION LIST AND FOLLOW INSTRUCTIONS CAREFULLY. ENSURE ADEQUATE DAILY FLUID INTAKE. AMBULATE FREQUENTLY TOLERATED. PLEASE CALL PRIMARY CARE PHYSICIAN OR RETURN TO ER IMMEDIATELY IF WITH RECURRENCE OF SYMPTOMS. FOLLOW UP WITH DR. UNDERWOOD ON Friday03/10/17/ Current Hospital Diet Patient's current hospital diet: Diabetes Type 2 Diet, AHA Diet (Heart Healthy) Discharge Diet Recommended Diet: AHA Diet (Heart Healthy), Diabetes Type 2 Diet Pending Studies Studies pending at discharge: no Laboratory Results Hemoglobin A1c Test 03/03/17 07:19 Range/Units Estimated Average Glucose 154 mg/dl Hemoglobin A1c 7.0 H 4.5-5.6 % Medical Emergencies . Who to Call and When: Medical Emergencies: If at any time you feel your situation is an emergency, please call 911 immediately. . Non-Emergent Contact Non-Emergency issues call your: Primary Care Provider Call Non-Emergent contact if: you have a fever, you have any medication questions . Past History Medical & Surgical History: (1) Diabetes (2) Asthma . "Provider Documentation" section prepared by Dre Salazar. VTE Core Measure Inpt VTE Proph given/why not?: Enoxaparin (Lovenox)SQ, SCD's
== END 2017-03-07 15:05 | disposition home or self-care (01) | DRG 194 ==
LOC: ENRESERVDT → ENRESERVTM → C.EDB 16:22 → C.MS2W 17:56
PROVIDERS: ADMIT Emergency Medicine; ATTEND Internal Medicine
DX: J11.00 Influenza due to unidentified influenza virus with unspecified type of pneumonia (principal); Z68.41 Body mass index [BMI] 40.0-44.9, adult; E11.9 Type 2 diabetes mellitus without complications; I10 Essential (primary) hypertension; J45.909 Unspecified asthma, uncomplicated; Z83.3 Family history of diabetes mellitus; Z88.8 Allergy status to other drugs, medicaments and biological substances; Z88.2 Allergy status to sulfonamides; Z79.84 Long term (current) use of oral hypoglycemic drugs; Z79.899 Other long term (current) drug therapy; E66.01 Morbid (severe) obesity due to excess calories; E28.2 Polycystic ovarian syndrome; R00.0 Tachycardia, unspecified

== ENCOUNTER → 2017-04-09 | Outpatient (CLI) | payer BC ==
[~2017-04-09] MED LIST changes: -ADVIN10/60 INH; +ADVIN25050 INH; -ALL180 PO; -ASCA500 PO; +ASCO1CAP3 PO; +ATRINS INH; +AZEL30SP NAE; +CHOLPOW PO; +CINN500T PO; +CRAN1TAB6 PO; -GFNSR600 PO; -GLC500 PO; +GUAI1TAB55 PO; +LACTCAP3 PO; +LORA10TA44 PO; +LOSA50TA6 PO; -LRT5 PO; +METF500T5 PO; +MONT1TAB5 PO; -MULT-506 PO; +MULTTAB5 PO; +PRD10 PO; +SALI0.6510; -SNG10 PO; +SPR28 PO; -SPRINTEC PO; +VNTHFA/IN INH; +XPNINS1255 INH
== END | disposition home or self-care (01) ==
LOC: C.PAPS 14:17
PROVIDERS: ATTEND Obstetrics & Gynecology
DX: Z01.419 Encounter for gynecological examination (general) (routine) without abnormal findings (principal)